=== PATIENT | male | born 1960 | race Two or more races ===

== ENCOUNTER 2018-02-18 18:41 | Inpatient (IN) | payer MEDICARE, OTHER ==
[~2018-02-18] VITALS: Ht 167.6 cm; Wt 82.1 kg
[~2018-02-18 18:41] MED LIST: AML5T PO; CLOP75TA41 PO; HYDR-4296 PO; ISOS30TA4 PO; METO25TA5 PO; NITR0.4S29 SL; SIMV-8 PO
[2018-02-18] MEDS ORDERED: ACETAMINOPHEN 325 MG TAB PO PRN (22:30)
[2018-02-18] MEDS ORDERED: TEMAZEPAM 15 MG CAP PO PRN (22:30)
[2018-02-18] MEDS ORDERED: LORazepam 2MG/ML-1ML VIAL IV PRN (22:30)
[2018-02-18] MEDS ORDERED: ONDANSETRON HCL 4 MG/2 ML VIAL IV PRN (22:30)
[2018-02-18 22:39] LABS: Basophils # (auto) 0.1 uL; Basophils % (auto) 0.7 % (0.0-2.0); Eosinophils # (auto) 0.4 uL; Eosinophils % (auto) 5.1 % (0.0-7.0); Hematocrit 38.9 % (41.0-53.0); Hemoglobin 13.1 g/dL (13.5-17.5); Lymphocytes # (auto) 1.2 uL; Lymphocytes % (auto) 16.2 % (10.0-50.0); Mean Corpuscular Hemoglobin 31.1 pg (28.0-32.0); Mean Corpuscular Hgb Conc. 33.5 g/dL (32.0-36.0); Mean Corpuscular Volume 92.6 fL (80.0-100.0); Monocytes # (auto) 0.5 uL; Monocytes % (auto) 6.3 % (0.0-12.0); Neutrophils # (auto) 5.5 uL; Neutrophils % (auto) 71.7 % (37.0-80.0); Nucleated Red Blood Cells % 0.2 %; Platelet Count (auto) 153 10^3/uL (140-450); Red Cell Distribution Width 14.4 % (11.8-14.3); White Blood Cell 7.6 10^3/uL (4.4-10.8)
[2018-02-18 22:55] LABS: INR 0.94 (0.9-1.15); Partial Thromboplastin Time 26.7 sec (23.78-33.04); Prothrombin Time 10.1 sec (9.27-12.13)
[2018-02-18 22:59] LABS: Albumin 3.1 g/dL (3.4-5.0); Anion Gap 10 (5-15); Blood Urea Nitrogen 20 mg/dL (7-18); Calcium 7.2 mg/dL (8.5-10.1); Carbon Dioxide 28 mmol/L (21-32); Chloride 99 mmol/L (98-107); Magnesium 1.8 mg/dL (1.6-2.6); Potassium 4.1 mmol/L (3.5-5.1); Sodium 137 mmol/L (136-145)
[2018-02-18 23:01] LABS: Alanine Aminotransferase 26 U/L (16-61); Aspartate Aminotransferase 29 U/L (15-37); GFR African American 15 mL/min; GFR Non-African American 13 mL/min; Glucose 80 mg/dL (74-106)
[2018-02-18 23:04] LABS: Alkaline Phosphatase 106 U/L (45-117); Bilirubin, Total 0.5 mg/dL (0.2-1.0); Total Protein 8.6 g/dL (6.4-8.2)
[2018-02-18 23:46] VITALS: BP 132/87
[2018-02-19 05:42] VITALS: BP 121/73
[2018-02-19] MEDS ORDERED: DIPH25CA66 PO (06:37)
[2018-02-19] MEDS ORDERED: SEVE800T8 PO (06:37)
[2018-02-19] MEDS ORDERED: HYDR-4296 PO (06:37)
[2018-02-19] MEDS ORDERED: ISOS10TA45 PO (06:37)
[2018-02-19] MEDS ORDERED: MET25T PO (06:37)
[2018-02-19] MEDS ORDERED: ALLO100T PO (06:37)
[2018-02-19 07:03] LABS: Basophils # (auto) 0.1 uL; Basophils % (auto) 0.9 % (0.0-2.0); Eosinophils # (auto) 0.5 uL; Eosinophils % (auto) 7.6 % (0.0-7.0); Hematocrit 36.5 % (41.0-53.0); Lymphocytes # (auto) 1.6 uL; Lymphocytes % (auto) 26.5 % (10.0-50.0); Mean Corpuscular Hemoglobin 30.6 pg (28.0-32.0); Mean Corpuscular Hgb Conc. 32.9 g/dL (32.0-36.0); Monocytes # (auto) 0.5 uL; Monocytes % (auto) 8.4 % (0.0-12.0); Neutrophils # (auto) 3.4 uL; Neutrophils % (auto) 56.6 % (37.0-80.0); Platelet Count (auto) 161 10^3/uL (140-450); Red Blood Cells 3.93 10^6/uL (4.5-5.90); Red Cell Distribution Width 14.1 % (11.8-14.3)
[2018-02-19 07:04] LABS: Calcium 6.5 mg/dL (8.5-10.1); Chloride 100 mmol/L (98-107); Potassium 3.7 mmol/L (3.5-5.1); Sodium 137 mmol/L (136-145)
[2018-02-19 07:08] LABS: Alanine Aminotransferase 23 U/L (16-61); Albumin 2.8 g/dL (3.4-5.0); Anion Gap 12 (5-15); Aspartate Aminotransferase 19 U/L (15-37); BUN/Creatinine Ratio 3.9; Blood Urea Nitrogen 23 mg/dL (7-18); Carbon Dioxide 25 mmol/L (21-32); GFR African American 13 mL/min; GFR Non-African American 11 mL/min; Glucose 88 mg/dL (74-106)
[2018-02-19 07:10] LABS: Alkaline Phosphatase 90 U/L (45-117); Bilirubin, Total 0.5 mg/dL (0.2-1.0); Total Protein 7.7 g/dL (6.4-8.2)
[2018-02-19 09:00] VITALS: BP 140/77
[2018-02-19] MEDS: amLODIPine BESYLATE 5 MG TAB PO SCH (10:02)
[2018-02-19] MEDS: CLOPIDOGREL BISULFATE 75 MG TAB PO SCH (10:03)
[2018-02-19] MEDS: hydrALAZINE HCL 25 MG TAB PO SCH ×2 (10:03→22:00)
[2018-02-19] MEDS: METOPROLOL TARTRATE 25 MG TAB PO SCH ×2 (10:03→23:37)
[2018-02-19] MEDS: PANTOPRAZOLE 40 MG TAB PO SCH (10:04)
[2018-02-19] MEDS: ISOSORBIDE MONONITRATE 60 MG TAB PO SCH (10:04)
[2018-02-19] MEDS ORDERED: LORazepam 2MG/ML-1ML VIAL IV PRN (12:45)
[2018-02-19] MEDS: LEVETIRACETAM 500 MG TAB PO SCH ×2 (12:55→23:37)
[2018-02-19 13:00] VITALS: BP 117/71
[2018-02-19 17:00] VITALS: BP 93/51
[2018-02-19 22:00] VITALS: BP 110/61
[2018-02-19] MEDS: ATORVASTATIN 20 MG TAB PO SCH (23:36)
[2018-02-20 06:00] VITALS: BP 98/55
[2018-02-20 08:46] LABS: Basophils # (auto) 0.1 uL; Eosinophils # (auto) 0.5 uL; Eosinophils % (auto) 8.5 % (0.0-7.0); Hematocrit 37.6 % (41.0-53.0); Hemoglobin 12.4 g/dL (13.5-17.5); Lymphocytes # (auto) 1.7 uL; Nucleated Red Blood Cells % 0.1 %
[2018-02-20 08:58] LABS: Basophils % (auto) 0.9 % (0.0-2.0); Lymphocytes % (auto) 29.2 % (10.0-50.0); Mean Corpuscular Hemoglobin 30.4 pg (28.0-32.0); Mean Corpuscular Volume 92.2 fL (80.0-100.0); Monocytes # (auto) 0.6 uL; Monocytes % (auto) 9.4 % (0.0-12.0); Neutrophils # (auto) 3.1 uL; Platelet Count (auto) 163 10^3/uL (140-450); Red Blood Cells 4.08 10^6/uL (4.5-5.90); Red Cell Distribution Width 14.4 % (11.8-14.3)
[2018-02-20 09:00] VITALS: BP 110/70
[2018-02-20 09:14] LABS: BUN/Creatinine Ratio 4.4; Calcium 6.6 mg/dL (8.5-10.1); Phosphorus 6.1 mg/dL (2.5-4.90); Potassium 4.1 mmol/L (3.5-5.1)
[2018-02-20] MEDS: METOPROLOL TARTRATE 25 MG TAB PO SCH ×2 (09:33→22:00)
[2018-02-20] MEDS: LEVETIRACETAM 500 MG TAB PO SCH ×2 (09:33→22:07)
[2018-02-20] MEDS: ISOSORBIDE MONONITRATE 60 MG TAB PO SCH (09:33)
[2018-02-20] MEDS: hydrALAZINE HCL 25 MG TAB PO SCH ×2 (09:33→22:07)
[2018-02-20] MEDS: amLODIPine BESYLATE 5 MG TAB PO SCH (09:34)
[2018-02-20] MEDS: PANTOPRAZOLE 40 MG TAB PO SCH ×2 (09:34→10:29)
[2018-02-20] MEDS: CLOPIDOGREL BISULFATE 75 MG TAB PO SCH (09:34)
[2018-02-20] MEDS: SEVELAMER 800 MG TAB PO SCH ×2 (11:33→17:25)
[2018-02-20 17:00] VITALS: BP 102/57
[2018-02-20 21:44] VITALS: BP 115/68
[2018-02-20] MEDS: ATORVASTATIN 20 MG TAB PO SCH (22:07)
[2018-02-21 05:18] VITALS: BP 111/69
[2018-02-21 05:56] LABS: Basophils # (auto) 0.1 uL; Basophils % (auto) 0.9 % (0.0-2.0); Eosinophils # (auto) 0.4 uL; Eosinophils % (auto) 6.3 % (0.0-7.0); Hematocrit 35.9 % (41.0-53.0); Hemoglobin 11.9 g/dL (13.5-17.5); Lymphocytes # (auto) 1.9 uL; Lymphocytes % (auto) 29.4 % (10.0-50.0); Mean Corpuscular Hemoglobin 30.4 pg (28.0-32.0); Mean Corpuscular Hgb Conc. 33.1 g/dL (32.0-36.0); Mean Corpuscular Volume 91.9 fL (80.0-100.0); Monocytes # (auto) 0.6 uL; Monocytes % (auto) 8.9 % (0.0-12.0); Neutrophils # (auto) 3.4 uL; Neutrophils % (auto) 54.5 % (37.0-80.0); Nucleated Red Blood Cells % 0.1 %; Platelet Count (auto) 175 10^3/uL (140-450); Red Blood Cells 3.91 10^6/uL (4.5-5.90); Red Cell Distribution Width 14.4 % (11.8-14.3); White Blood Cell 6.3 10^3/uL (4.4-10.8)
[2018-02-21 06:15] LABS: BUN/Creatinine Ratio 5.5; Calcium 6.7 mg/dL (8.5-10.1); Potassium 3.8 mmol/L (3.5-5.1)
[2018-02-21] MEDS: SEVELAMER 800 MG TAB PO SCH ×3 (08:10→19:38)
[2018-02-21] MEDS ORDERED: SODIUM CHL 0.9% 1000 ML BAG XX ONE (08:30)
[2018-02-21 09:00] VITALS: BP 103/60
[2018-02-21] MEDS: METOPROLOL TARTRATE 25 MG TAB PO SCH (10:00)
[2018-02-21] MEDS: hydrALAZINE HCL 25 MG TAB PO SCH (10:00)
[2018-02-21] MEDS: ISOSORBIDE MONONITRATE 60 MG TAB PO SCH (10:00)
[2018-02-21] MEDS: amLODIPine BESYLATE 5 MG TAB PO SCH (10:00)
[2018-02-21] MEDS: CLOPIDOGREL BISULFATE 75 MG TAB PO SCH (12:08)
[2018-02-21] MEDS: LEVETIRACETAM 500 MG TAB PO SCH (12:09)
[2018-02-21 13:00] VITALS: BP 126/74
[2018-02-21 14:42] VITALS: BP 118/71
[2018-02-21 16:59] VITALS: BP 122/72
== END 2018-02-21 19:35 | disposition home or self-care (01) | DRG 100 ==
LOC: EDBD 18:41 → ER 18:43 → OVERFLOW 18:44 → WEST WING 23:46
PROVIDERS: ADMIT Nurse Practitioner; ATTEND Internal Medicine
PROC: 5A1D70Z Performance of Urinary Filtration, Intermittent, Less than 6 Hours Per Day (ICD-10-PCS; principal; 2018-02-21)
DX: R56.9 Unspecified convulsions (principal); N18.6 End stage renal disease; G81.91 Hemiplegia, unspecified affecting right dominant side; I13.11 Hypertensive heart and chronic kidney disease without heart failure, with stage 5 chronic kidney disease, or end stage renal disease; R47.01 Aphasia; N25.81 Secondary hyperparathyroidism of renal origin; E44.0 Moderate protein-calorie malnutrition; D64.9 Anemia, unspecified; E78.5 Hyperlipidemia, unspecified; I25.10 Atherosclerotic heart disease of native coronary artery without angina pectoris; E83.39 Other disorders of phosphorus metabolism; R55 Syncope and collapse; F17.200 Nicotine dependence, unspecified, uncomplicated; Z79.899 Other long term (current) drug therapy; Z82.3 Family history of stroke; Z86.73 Personal history of transient ischemic attack (TIA), and cerebral infarction without residual deficits; Z99.2 Dependence on renal dialysis; Z82.49 Family history of ischemic heart disease and other diseases of the circulatory system; Z68.29 Body mass index [BMI] 29.0-29.9, adult
CPT/HCPCS: 36415; 70450; 70551; 71045; 80048; 80053; 83735; 84100; 85025; 85610; 85730; 87081; 90935; 93005; 94761; 95819; 97110; 97116; 97163; J1642

== ENCOUNTER 2019-10-16 15:04 | Inpatient (IN) | payer MEDICARE, OTHER ==
[~2019-10-16] VITALS: Ht 172.7 cm; Wt 74.5 kg
[~2019-10-16 15:04] MED LIST changes: +ALLO100T PO; +DIPH25CA66 PO; +ISOS10TA45 PO; -ISOS30TA4 PO; +MET25T PO; -METO25TA5 PO; +SEVE800T8 PO
[2019-10-16 15:47] LABS: Basophils # (auto) 0.1 10 ^3/uL (0-0.2); Basophils % (auto) 1.3 % (0.0-2.0); Eosinophils # (auto) 0.1 10 ^3/uL (0-0.8); Eosinophils % (auto) 0.9 % (0.0-7.0); Hematocrit 37.3 % (41.0-53.0); Lymphocytes # (auto) 0.9 10 ^3/uL (0.4-5.4); Lymphocytes % (auto) 12.1 % (10.0-50.0); Mean Corpuscular Hemoglobin 29.6 pg (28.0-32.0); Mean Corpuscular Hgb Conc. 32.3 g/dL (32.0-36.0); Mean Corpuscular Volume 91.9 fL (80.0-100.0); Monocytes # (auto) 0.3 10 ^3/uL (0-1.3); Monocytes % (auto) 4.7 % (0.0-12.0); Neutrophils # (auto) 5.9 10 ^3/uL (1.6-8.6); Nucleated Red Blood Cells % 0.2 %; Platelet Count (auto) 312 10^3/uL (140-450); Red Blood Cells 4.06 10^6/uL (4.5-5.90); Red Cell Distribution Width 15.5 % (11.8-14.3); White Blood Cell 7.3 10^3/uL (4.4-10.8)
[2019-10-16 16:08] LABS: Albumin 2.7 g/dL (3.4-5.0); Anion Gap 11 (5-15); Blood Urea Nitrogen 19 mg/dL (7-18); Calcium 8.2 mg/dL (8.5-10.1); Carbon Dioxide 23 mmol/L (21-32); Chloride 101 mmol/L (98-107); Glucose 78 mg/dL (74-106); Potassium 4.1 mmol/L (3.5-5.1); Sodium 135 mmol/L (136-145)
[2019-10-16 16:10] LABS: Alanine Aminotransferase 17 U/L (16-61); Aspartate Aminotransferase 20 U/L (15-37); BUN/Creatinine Ratio 3.8; GFR African American 15 mL/min; GFR Non-African American 13 mL/min
[2019-10-16 16:15] LABS: Alkaline Phosphatase 109 U/L (45-117); Bilirubin, Total 0.3 mg/dL (0.2-1.0); Total Protein 9.7 g/dL (6.4-8.2)
[2019-10-16] MEDS ORDERED: hydrALAZINE HCL 20 MG/ML VL IV PRN (20:30)
[2019-10-16] MEDS ORDERED: NITROGLYCERIN 0.4 MG SL TAB SL PRN (20:30)
[2019-10-16] MEDS ORDERED: MORPHINE SULF INJ 2 MG/ML SYRINGE 1ML IV PRN (20:30)
[2019-10-16] MEDS: diphenhdrAMINE HCL 50 MG/1 ML VL IM SCH (20:36)
[2019-10-16 20:54] LABS: Basophils # (auto) 0.1 10 ^3/uL (0-0.2); Basophils % (auto) 0.8 % (0.0-2.0); Eosinophils # (auto) 0.1 10 ^3/uL (0-0.8); Eosinophils % (auto) 1.1 % (0.0-7.0); Hematocrit 34.9 % (41.0-53.0); Hemoglobin 11.4 g/dL (13.5-17.5); Lymphocytes # (auto) 0.9 10 ^3/uL (0.4-5.4); Lymphocytes % (auto) 13.9 % (10.0-50.0); Mean Corpuscular Hemoglobin 29.8 pg (28.0-32.0); Mean Corpuscular Hgb Conc. 32.7 g/dL (32.0-36.0); Mean Corpuscular Volume 91.2 fL (80.0-100.0); Monocytes # (auto) 0.6 10 ^3/uL (0-1.3); Monocytes % (auto) 8.1 % (0.0-12.0); Neutrophils # (auto) 5.2 10 ^3/uL (1.6-8.6); Neutrophils % (auto) 76.1 % (37.0-80.0); Platelet Count (auto) 324 10^3/uL (140-450); Red Blood Cells 3.83 10^6/uL (4.5-5.90); Red Cell Distribution Width 15.4 % (11.8-14.3); White Blood Cell 6.8 10^3/uL (4.4-10.8)
[2019-10-16 21:09] LABS: Albumin 2.6 g/dL (3.4-5.0); Calcium 7.6 mg/dL (8.5-10.1); Potassium 4.2 mmol/L (3.5-5.1)
[2019-10-16 21:13] LABS: BUN/Creatinine Ratio 3.5; Bilirubin, Total 0.3 mg/dL (0.2-1.0); Total Protein 9.2 g/dL (6.4-8.2)
[2019-10-16 22:34] VITALS: BP 142/99
--- NOTE | 2019-10-16 22:40 | NUR ---
[facility] after SBAR received. Patient oriented to PARI GARDINER, RN primary RN, unit, room, bed, and unit policies regarding patient care and visiting hours. Patient now on continuous telemetry monitoring, tele box # 65 and telemetry reading on arrival to unit is [id number]. Patient placed on bedside oxygen, weighed by bedscale and encouraged to call if they need something. All questions and concerns addressed, patient verbalized understanding. Patient speaks [place]. AOX4 but has language barrier.
[2019-10-16] MEDS: methylPREDNISolone SOD SUCC 125 MG/2 ML VL IV SCH (22:49)
[2019-10-17] MEDS ORDERED: ALBU2TAB4 PO (00:18)
[2019-10-17] MEDS ORDERED: GABA250S2 PO (00:18)
[2019-10-17] MEDS ORDERED: TAMS0.4C36 PO (00:18)
[2019-10-17] MEDS ORDERED: MOXI0.5S LEFTEYE (00:18)
[2019-10-17] MEDS: diphenhdrAMINE HCL 50 MG/1 ML VL IM SCH ×3 (03:00→14:05)
[2019-10-17 05:00] VITALS: BP 129/93
[2019-10-17] MEDS: methylPREDNISolone SOD SUCC 125 MG/2 ML VL IV SCH ×2 (05:18→14:04)
--- NOTE | 2019-10-17 07:13 | NUR ---
Closing Note Endorsed care to day shift nurse.
[2019-10-17 08:00] VITALS: BP 147/97
[2019-10-17 09:00] VITALS: BP 147/97
--- NOTE | 2019-10-17 09:30 | NUR ---
USED PARKING ANALYST SERVICES TO OBTAIN INFORMATION FROM PATIENT. SPOKE WITH HAM, SERVICE #[id number]
--- NOTE | 2019-10-17 10:55 | NUR ---
DR LUGO BEDSIDE WITH PATIENT
--- NOTE | 2019-10-17 11:30 | NUR ---
PATIENTS CAREGIVER, WOLFGANG, CALLED FOR UPDATE ON PATIENT. PROVIDED UPDATE.
[2019-10-17 12:39] VITALS: BP_SYST 139; BP_SYST 150; BP_DIAS 84; BP_DIAS 94
[2019-10-17 17:00] VITALS: BP 147/91
--- NOTE | 2019-10-17 18:00 | NUR ---
DR ROBLES BEDSIDE WITH PATIENT DISCUSSING PLAN OF CARE. ORDERS RECEIVED AND CARRIED OUT.
--- NOTE | 2019-10-17 18:15 | NUR ---
PAGED DR ROBLES, WE DO NOT CARRY THE VIGOMOX EYE DROPS DR ROBLES REQUESTED FOR PATIENT. PER PHARMACY, THEY WOULD RECOMMEND CIPROFLOXACIN 0.3 EYE DROPS THIS MEDICATION IS IN THE SAME CLASS. NEED TO CONFIRM DR ROBLES APPROVES THIS NEED MEDICATION AND SAME ORDER FOR 2 DROPS Q4 HR IN LEFT EYE ONLY
--- NOTE | 2019-10-17 19:30 | NUR ---
DR ROBLES RESPONDED REGARDING EYE MEDICATION. ORDER RECEIVED AND CARRIED OUT.
--- NOTE | 2019-10-17 19:31 | NUR ---
received report from day rn poc reviewed
--- NOTE | 2019-10-17 20:00 | NUR ---
pt observed resting with hob up resp even and unlabored, interpretor phone at bedside, call light within reach, pt is able to verbalize needs with some azeri, bed alarm intact
[2019-10-17] MEDS: CIPROFLOXACIN 0.3%OPTH(EYE) SOL 5ML LEFTEYE SCH (21:30)
[2019-10-17 21:44] VITALS: BP 139/98
[2019-10-18] MEDS: CIPROFLOXACIN 0.3%OPTH(EYE) SOL 5ML LEFTEYE SCH ×4 (02:07→13:55)
--- NOTE | 2019-10-18 04:20 | NUR ---
resting comfortable call light within reach, bed alarm intact, eye gtts given as ordered
[2019-10-18 04:41] VITALS: BP 138/83
--- NOTE | 2019-10-18 05:54 | NUR ---
awoke no c/o discomfort, resp even and unlabored, call light within reach
--- NOTE | 2019-10-18 06:46 | NUR ---
report given to am nurse poc reviewed
[2019-10-18 08:52] VITALS: BP 165/95
--- NOTE | 2019-10-18 10:56 | NUR ---
High BP The patient BP this morning was 165/95 after a recheck. Gave the patient Hydralazine 10mg IV per BP protocol and his BP after reassessment was 148/85. Will continue to monitor.
[2019-10-18 13:00] VITALS: BP 146/95
[2019-10-18] MEDS ORDERED: HEPARIN 1,000 UNITS/ml 1ML VIAL IV ONE (14:15)
[2019-10-18 15:49] VITALS: BP 165/95
--- NOTE | 2019-10-18 16:35 | NUR ---
assessment Patients transportation has been set up with [facility] [phone] confirmation #[id number] per Odalis for 630pm. Rogelio CATES has been notified. Addendum: 10/18/19 at 1637 by Tami ANDREA Amended: Links added.
[2019-10-18 17:00] VITALS: BP 119/78
--- NOTE | 2019-10-18 18:44 | NUR ---
Patient Discharged The patient was discharged today via wheel chair. Discharge paper work was explained to the patient's medical care administrator, Vanessa. Removed the IV and telemetry box, helped dress the patient, reminded about follow up appointments. The patient was discharged at 1730hrs.
== END 2019-10-18 17:30 | disposition home or self-care (01) | DRG 915 ==
LOC: ER 15:04 → EDBD 15:04 → TELE 15:05 → TELE-WESTW 22:48
PROVIDERS: ADMIT Internal Medicine; ATTEND Internal Medicine
PROC: 5A1D70Z Performance of Urinary Filtration, Intermittent, Less than 6 Hours Per Day (ICD-10-PCS; principal; 2019-10-18)
DX: T78.3XXA Angioneurotic edema, initial encounter (principal); N18.6 End stage renal disease; R47.01 Aphasia; I12.0 Hypertensive chronic kidney disease with stage 5 chronic kidney disease or end stage renal disease; J98.11 Atelectasis; Z99.2 Dependence on renal dialysis; E78.5 Hyperlipidemia, unspecified; D64.9 Anemia, unspecified; G40.909 Epilepsy, unspecified, not intractable, without status epilepticus; Z79.02 Long term (current) use of antithrombotics/antiplatelets; Z82.3 Family history of stroke; Z86.73 Personal history of transient ischemic attack (TIA), and cerebral infarction without residual deficits
CPT/HCPCS: 36415; 70450; 71045; 80053; 84484; 85025; 87081; 90935; 93005; G0378

== ENCOUNTER 2021-06-17 12:18 | Inpatient (IN) | payer MEDICARE, OTHER ==
[~2021-06-17] VITALS: Ht 160 cm; Wt 68.0 kg
[~2021-06-17 12:18] MED LIST changes: +ALBU2TAB4 PO; -CLOP75TA41 PO; -DIPH25CA66 PO; +HYDR-3682 PO; -HYDR-4296 PO; -MET25T PO; -NITR0.4S29 SL; +TAMS0.4C36 PO
[2021-06-17 13:03] LABS: Basophils # (auto) 0 10 ^3/uL (0-0.2); Basophils % (auto) 0.5 % (0.0-2.0); Eosinophils # (auto) 0 10 ^3/uL (0-0.8); Hematocrit 30.1 % (41.0-53.0); Hemoglobin 10.1 g/dL (13.5-17.5); Lymphocytes # (auto) 0.5 10 ^3/uL (0.4-5.4); Lymphocytes % (auto) 5.6 % (10.0-50.0); Mean Corpuscular Hemoglobin 30.4 pg (28.0-32.0); Mean Corpuscular Hgb Conc. 33.6 g/dL (32.0-36.0); Mean Corpuscular Volume 90.5 fL (80.0-100.0); Monocytes # (auto) 0.3 10 ^3/uL (0-1.3); Monocytes % (auto) 3.4 % (0.0-12.0); Neutrophils # (auto) 7.5 10 ^3/uL (1.6-8.6); Neutrophils % (auto) 90.5 % (37.0-80.0); Red Blood Cells 3.33 10^6/uL (4.5-5.90); Red Cell Distribution Width 13.6 % (11.8-14.3); White Blood Cell 8.3 10^3/uL (4.4-10.8)
[2021-06-17 13:17] LABS: Albumin 2.9 g/dL (3.4-5.0); Calcium 7.8 mg/dL (8.5-10.1); Potassium 3.8 mmol/L (3.5-5.1)
[2021-06-17 13:20] LABS: BUN/Creatinine Ratio 4.4; Bilirubin, Total 0.4 mg/dL (0.2-1.0); Total Protein 8.2 g/dL (6.4-8.2)
[2021-06-17] MEDS ORDERED: ACETAMINOPHEN 325 MG TAB PO ONE (14:00)
[2021-06-17] MEDS ORDERED: IBUPROFEN 400 MG TAB PO ONE (15:30)
[2021-06-17] MEDS ORDERED: DOCUSATE SOD 100 MG CAP PO PRN (17:30)
[2021-06-17] MEDS ORDERED: NITROGLYCERIN 0.4 MG SL TAB SL PRN (17:30)
[2021-06-17] MEDS ORDERED: MORPHINE SULFATE INJECTION 2 MG/ML SYRG IV PRN ×2 (17:30)
[2021-06-17] MEDS ORDERED: levoFLOXacin 250MG 50 ML IV SCH (18:00)
[2021-06-17] MEDS: ASCORBIC ACID 500 MG TAB PO SCH (22:12)
[2021-06-17] MEDS: ACETAMINOPHEN 325 MG TAB PO PRN (22:13)
[2021-06-18 08:32] LABS: Basophils # (auto) 0.1 10 ^3/uL (0-0.2); Basophils % (auto) 0.5 % (0.0-2.0); Eosinophils # (auto) 0 10 ^3/uL (0-0.8); Hematocrit 29.5 % (41.0-53.0); Hemoglobin 9.7 g/dL (13.5-17.5); Lymphocytes # (auto) 0.7 10 ^3/uL (0.4-5.4); Lymphocytes % (auto) 4.4 % (10.0-50.0); Mean Corpuscular Hemoglobin 29.8 pg (28.0-32.0); Mean Corpuscular Hgb Conc. 32.9 g/dL (32.0-36.0); Mean Corpuscular Volume 90.6 fL (80.0-100.0); Monocytes # (auto) 0.7 10 ^3/uL (0-1.3); Monocytes % (auto) 4.1 % (0.0-12.0); Red Blood Cells 3.25 10^6/uL (4.5-5.90); Red Cell Distribution Width 13.6 % (11.8-14.3); White Blood Cell 16.5 10^3/uL (4.4-10.8)
[2021-06-18 08:51] LABS: Albumin 2.7 g/dL (3.4-5.0); Calcium 7.9 mg/dL (8.5-10.1); Potassium 4.2 mmol/L (3.5-5.1)
[2021-06-18 08:55] LABS: BUN/Creatinine Ratio 4.8; Bilirubin, Total 0.4 mg/dL (0.2-1.0); Total Protein 7.2 g/dL (6.4-8.2)
[2021-06-18 09:00] VITALS: BP 102/59
[2021-06-18] MEDS ORDERED: HYDR25TA87 PO (11:21)
[2021-06-18] MEDS ORDERED: AMLO-489 PO (11:21)
[2021-06-18] MEDS ORDERED: ALBUAER3 IN (11:52)
[2021-06-18] MEDS: MULTIPLE VITAMIN TAB PO SCH (12:04)
[2021-06-18] MEDS: ZINC SULFATE 220mg CAP or TAB PO SCH (12:04)
[2021-06-18] MEDS: ASCORBIC ACID 500 MG TAB PO SCH ×2 (12:04→21:50)
[2021-06-18] MEDS: ENOXAPARIN SOD 30 MG/0.3 ML SYRINGE SC SCH (12:05)
[2021-06-18 13:29] VITALS: BP 118/65
[2021-06-18 16:30] VITALS: BP 93/46
[2021-06-18] MEDS ORDERED: VANCOMYCIN PER PHARMACY 0 MG IV SCH (16:58)
[2021-06-18] MEDS ORDERED: VANCOMYCIN 1GM/250ML 250 ML IV ONE (17:30)
[2021-06-18 22:00] VITALS: BP 90/28
[2021-06-19 05:00] VITALS: BP 98/50
[2021-06-19 05:56] LABS: Basophils # (auto) 0 10 ^3/uL (0-0.2); Basophils % (auto) 0.3 % (0.0-2.0); Eosinophils # (auto) 0 10 ^3/uL (0-0.8); Eosinophils % (auto) 0.2 % (0.0-7.0); Hematocrit 26.1 % (41.0-53.0); Hemoglobin 9.1 g/dL (13.5-17.5); Lymphocytes % (auto) 9.7 % (10.0-50.0); Mean Corpuscular Hemoglobin 31.2 pg (28.0-32.0); Mean Corpuscular Volume 89.1 fL (80.0-100.0); Monocytes # (auto) 0.7 10 ^3/uL (0-1.3); Monocytes % (auto) 7.1 % (0.0-12.0); Neutrophils # (auto) 8.5 10 ^3/uL (1.6-8.6); Neutrophils % (auto) 82.7 % (37.0-80.0); Red Blood Cells 2.93 10^6/uL (4.5-5.90); Red Cell Distribution Width 13.4 % (11.8-14.3); White Blood Cell 10.2 10^3/uL (4.4-10.8)
[2021-06-19 06:30] LABS: BUN/Creatinine Ratio 5.3; Calcium 8.3 mg/dL (8.5-10.1); Potassium 3.6 mmol/L (3.5-5.1)
[2021-06-19] MEDS ORDERED: SODIUM CHL 0.9% 1000 ML BAG XX ONE (07:00)
[2021-06-19] MEDS: ENOXAPARIN SOD 30 MG/0.3 ML SYRINGE SC SCH (09:17)
[2021-06-19] MEDS: ZINC SULFATE 220mg CAP or TAB PO SCH (09:17)
[2021-06-19] MEDS: MULTIPLE VITAMIN TAB PO SCH (09:18)
[2021-06-19] MEDS: ASCORBIC ACID 500 MG TAB PO SCH ×2 (09:18→21:03)
[2021-06-19] MEDS: ALBUMIN 25% 100 ML IV SCH ×2 (15:00→16:00)
[2021-06-19] MEDS ORDERED: ceFAZolin 1GM/50ML 50 ML IV ONE (15:15)
[2021-06-19] MEDS ORDERED: EPOETIN ALFA-EPBX 10,000 UNIT/1ML VIAL SC ONE (21:00)
[2021-06-19] MEDS: ACETAMINOPHEN 325 MG TAB PO PRN (21:39)
[2021-06-19 22:00] VITALS: BP 121/75
[2021-06-20 05:28] VITALS: BP 121/86
[2021-06-20 09:00] VITALS: BP 107/54
[2021-06-20] MEDS: ZINC SULFATE 220mg CAP or TAB PO SCH (10:05)
[2021-06-20] MEDS: ENOXAPARIN SOD 30 MG/0.3 ML SYRINGE SC SCH (10:05)
[2021-06-20] MEDS: ceFAZolin 1GM/50ML 50 ML IV SCH (10:05)
[2021-06-20] MEDS: MULTIPLE VITAMIN TAB PO SCH (10:05)
[2021-06-20] MEDS: ASCORBIC ACID 500 MG TAB PO SCH ×2 (10:05→23:28)
[2021-06-20 13:00] VITALS: BP 110/47
[2021-06-20 17:00] VITALS: BP 103/47
[2021-06-20 22:00] VITALS: BP 120/58
[2021-06-21 06:04] VITALS: BP 115/47
[2021-06-21 08:00] VITALS: BP 128/58
[2021-06-21] MEDS: ceFAZolin 1GM/50ML 50 ML IV SCH (09:52)
[2021-06-21] MEDS: ENOXAPARIN SOD 30 MG/0.3 ML SYRINGE SC SCH (09:53)
[2021-06-21] MEDS: ASCORBIC ACID 500 MG TAB PO SCH ×2 (09:53→21:41)
[2021-06-21] MEDS: ZINC SULFATE 220mg CAP or TAB PO SCH (09:53)
[2021-06-21] MEDS: MULTIPLE VITAMIN TAB PO SCH (09:53)
[2021-06-21 13:00] VITALS: BP 124/70
[2021-06-21] MEDS ORDERED: SODIUM CHL 0.9% 1000 ML BAG XX ONE (16:30)
[2021-06-21 17:24] VITALS: BP 123/75
[2021-06-21 22:00] VITALS: BP 98/53
[2021-06-22 05:00] VITALS: BP 129/69
[2021-06-22 09:00] VITALS: BP 112/56
[2021-06-22 09:52] LABS: INR 1.06 (0.9-1.15)
[2021-06-22] MEDS: ceFAZolin 1GM/50ML 50 ML IV SCH (10:00)
[2021-06-22] MEDS: ZINC SULFATE 220mg CAP or TAB PO SCH (10:00)
[2021-06-22] MEDS: ENOXAPARIN SOD 30 MG/0.3 ML SYRINGE SC SCH (10:00)
[2021-06-22] MEDS: ASCORBIC ACID 500 MG TAB PO SCH ×2 (10:00→22:05)
[2021-06-22] MEDS: MULTIPLE VITAMIN TAB PO SCH (10:00)
[2021-06-22 13:00] VITALS: BP 136/74
[2021-06-22 14:37] LABS: Hepatitis A Ab IgM Negative; Hepatitis C Antibody Negative (Negative)
[2021-06-22 14:38] LABS: Hepatitis B Core IgM Negative
[2021-06-22 15:31] LABS: Basophils # (auto) 0.1 10 ^3/uL (0-0.2); Eosinophils # (auto) 0.1 10 ^3/uL (0-0.8); Eosinophils % (auto) 1.9 % (0.0-7.0); Hematocrit 29.7 % (41.0-53.0); Hemoglobin 9.8 g/dL (13.5-17.5); Lymphocytes # (auto) 1.3 10 ^3/uL (0.4-5.4); Lymphocytes % (auto) 23.4 % (10.0-50.0); Mean Corpuscular Hemoglobin 29.5 pg (28.0-32.0); Mean Corpuscular Hgb Conc. 33.2 g/dL (32.0-36.0); Mean Corpuscular Volume 89.1 fL (80.0-100.0); Monocytes # (auto) 0.5 10 ^3/uL (0-1.3); Monocytes % (auto) 8.9 % (0.0-12.0); Neutrophils # (auto) 3.7 10 ^3/uL (1.6-8.6); Neutrophils % (auto) 64.8 % (37.0-80.0); Red Blood Cells 3.33 10^6/uL (4.5-5.90); Red Cell Distribution Width 13.7 % (11.8-14.3); White Blood Cell 5.6 10^3/uL (4.4-10.8)
[2021-06-22 17:00] VITALS: BP 128/76
[2021-06-22 22:00] VITALS: BP 136/72
[2021-06-22] MEDS: SODIUM BICARBONATE 650 MG TAB PO SCH (22:05)
[2021-06-23 06:24] LABS: BUN/Creatinine Ratio 5.8; Calcium 7.8 mg/dL (8.5-10.1); Potassium 4.4 mmol/L (3.5-5.1)
[2021-06-23] MEDS: SODIUM BICARBONATE 650 MG TAB PO SCH ×3 (07:31→21:23)
[2021-06-23] MEDS: MULTIPLE VITAMIN TAB PO SCH (08:57)
[2021-06-23] MEDS: ASCORBIC ACID 500 MG TAB PO SCH ×2 (08:57→21:24)
[2021-06-23] MEDS: ZINC SULFATE 220mg CAP or TAB PO SCH (08:57)
[2021-06-23] MEDS: ceFAZolin 1GM/50ML 50 ML IV SCH (08:57)
[2021-06-23 09:00] VITALS: BP 111/71
[2021-06-23] MEDS ORDERED: LIDOCAINE 2%HCL (LOCAL ANESTH.) INJ 20ML MDV ONE (09:32)
[2021-06-23] MEDS: ENOXAPARIN SOD 30 MG/0.3 ML SYRINGE SC SCH (10:00)
[2021-06-23 11:55] VITALS: BP 109/76
[2021-06-23 17:00] VITALS: BP 113/67
[2021-06-23 22:00] VITALS: BP 115/68
[2021-06-24] MEDS: SODIUM BICARBONATE 650 MG TAB PO SCH ×3 (06:04→21:59)
[2021-06-24 08:38] VITALS: BP 168/76
[2021-06-24] MEDS: ZINC SULFATE 220mg CAP or TAB PO SCH (09:00)
[2021-06-24] MEDS: ceFAZolin 1GM/50ML 50 ML IV SCH (09:00)
[2021-06-24] MEDS: ASCORBIC ACID 500 MG TAB PO SCH ×2 (09:00→21:59)
[2021-06-24] MEDS: MULTIPLE VITAMIN TAB PO SCH (09:00)
[2021-06-24 12:29] LABS: BUN/Creatinine Ratio 5.8; Calcium 7.7 mg/dL (8.5-10.1); Potassium 4.9 mmol/L (3.5-5.1)
[2021-06-24 12:50] VITALS: BP 132/63
[2021-06-24] MEDS: HEPARIN SODIUM (PORCINE) 5000 UNITS/ML 1ML VIAL SC SCH ×2 (14:25→22:00)
[2021-06-24 16:25] VITALS: BP 187/110
[2021-06-24 18:10] VITALS: BP 142/88
[2021-06-24] MEDS ORDERED: SODIUM ZIRCONIUM CYCL 10 GM PAK PO SCH (18:45)
[2021-06-24] MEDS: SODIUM ZIRCONIUM CYCL 10 GM PAK PO SCH (19:45)
[2021-06-24 19:50] VITALS: BP 129/78
[2021-06-24 22:00] VITALS: BP 129/78
[2021-06-25] MEDS: SODIUM ZIRCONIUM CYCL 10 GM PAK PO SCH ×3 (02:47→18:19)
[2021-06-25 05:00] VITALS: BP 116/53
[2021-06-25] MEDS: SODIUM BICARBONATE 650 MG TAB PO SCH ×3 (06:20→21:42)
[2021-06-25] MEDS: HEPARIN SODIUM (PORCINE) 5000 UNITS/ML 1ML VIAL SC SCH ×3 (06:30→21:41)
[2021-06-25 06:31] LABS: Potassium 4.4 mmol/L (3.5-5.1)
[2021-06-25 06:43] LABS: BUN/Creatinine Ratio 5.8; Calcium 8.1 mg/dL (8.5-10.1)
[2021-06-25 08:21] VITALS: BP 116/57
[2021-06-25] MEDS: ASCORBIC ACID 500 MG TAB PO SCH ×2 (10:25→21:41)
[2021-06-25] MEDS: ZINC SULFATE 220mg CAP or TAB PO SCH (10:25)
[2021-06-25] MEDS: ceFAZolin 1GM/50ML 50 ML IV SCH (10:25)
[2021-06-25] MEDS: MULTIPLE VITAMIN TAB PO SCH (10:26)
[2021-06-25 13:00] VITALS: BP 143/76
[2021-06-25] MEDS ORDERED: HEPARIN SODIUM (PORCINE) 5000 UNITS/ML 1ML VIAL IV ONE (14:00)
[2021-06-25 16:57] VITALS: BP 129/69
[2021-06-25 21:54] VITALS: BP 126/72
[2021-06-26] MEDS: SODIUM ZIRCONIUM CYCL 10 GM PAK PO SCH ×3 (02:37→18:39)
[2021-06-26] MEDS: SODIUM BICARBONATE 650 MG TAB PO SCH ×3 (06:00→22:27)
[2021-06-26] MEDS: HEPARIN SODIUM (PORCINE) 5000 UNITS/ML 1ML VIAL SC SCH ×3 (06:00→22:00)
[2021-06-26 06:01] VITALS: BP 104/57
[2021-06-26] MEDS ORDERED: SODIUM CHL 0.9% 1000 ML BAG XX ONE (07:00)
[2021-06-26 07:11] LABS: Calcium 7.7 mg/dL (8.5-10.1); Potassium 4.7 mmol/L (3.5-5.1)
[2021-06-26 07:14] LABS: BUN/Creatinine Ratio 5.8
[2021-06-26 08:15] VITALS: BP 127/74
[2021-06-26 09:00] VITALS: BP 127/74
[2021-06-26] MEDS: MULTIPLE VITAMIN TAB PO SCH (10:13)
[2021-06-26] MEDS: ceFAZolin 1GM/50ML 50 ML IV SCH (10:13)
[2021-06-26] MEDS: ZINC SULFATE 220mg CAP or TAB PO SCH (10:13)
[2021-06-26] MEDS: LIDOCAINE 1% HCL (LOCAL ANESTH.) INJ 20ML MDV ID ONE ×2 (10:14→10:53)
[2021-06-26] MEDS: ASCORBIC ACID 500 MG TAB PO SCH ×2 (10:14→22:27)
[2021-06-26 12:52] VITALS: BP 124/76
[2021-06-26 16:52] VITALS: BP 136/78
[2021-06-26 22:00] VITALS: BP 121/78
[2021-06-26] MEDS: HYDROcodone-ACET 5/325MG TAB PO PRN ×2 (22:27→22:28)
[2021-06-27] MEDS: SODIUM ZIRCONIUM CYCL 10 GM PAK PO SCH ×3 (03:06→18:31)
[2021-06-27] MEDS: SODIUM BICARBONATE 650 MG TAB PO SCH ×3 (06:00→22:11)
[2021-06-27] MEDS: HEPARIN SODIUM (PORCINE) 5000 UNITS/ML 1ML VIAL SC SCH ×3 (06:00→22:12)
[2021-06-27] MEDS: HYDROcodone-ACET 5/325MG TAB PO PRN (06:00)
[2021-06-27 06:12] LABS: Calcium 7.2 mg/dL (8.5-10.1)
[2021-06-27 08:15] VITALS: BP 126/86
[2021-06-27 09:00] VITALS: BP 126/86
[2021-06-27] MEDS: ZINC SULFATE 220mg CAP or TAB PO SCH (10:08)
[2021-06-27] MEDS: MULTIPLE VITAMIN TAB PO SCH (10:08)
[2021-06-27] MEDS: ceFAZolin 1GM/50ML 50 ML IV SCH (10:08)
[2021-06-27] MEDS: ASCORBIC ACID 500 MG TAB PO SCH ×2 (10:08→22:11)
[2021-06-27] MEDS: ONDANSETRON HCL 4 MG/2 ML VIAL IV PRN (12:02)
[2021-06-27 13:00] VITALS: BP 118/80
[2021-06-27 17:00] VITALS: BP 127/77
[2021-06-27 20:00] VITALS: BP 125/74
[2021-06-27 22:00] VITALS: BP_SYST 124; BP_SYST 125; BP_DIAS 74; BP_DIAS 89
[2021-06-28] VITALS (8 sets, daily range): BP systolic 90–133; BP diastolic 62–83
[2021-06-28] MEDS: SODIUM ZIRCONIUM CYCL 10 GM PAK PO SCH ×3 (04:47→19:15)
[2021-06-28] MEDS: SODIUM BICARBONATE 650 MG TAB PO SCH ×3 (06:52→21:58)
[2021-06-28] MEDS: HEPARIN SODIUM (PORCINE) 5000 UNITS/ML 1ML VIAL SC SCH ×3 (06:53→22:03)
[2021-06-28] MEDS: ceFAZolin 1GM/50ML 50 ML IV SCH (10:54)
[2021-06-28] MEDS: ZINC SULFATE 220mg CAP or TAB PO SCH (10:55)
[2021-06-28] MEDS: ASCORBIC ACID 500 MG TAB PO SCH ×2 (10:56→21:57)
[2021-06-28] MEDS: MULTIPLE VITAMIN TAB PO SCH (10:56)
[2021-06-28] MEDS: ONDANSETRON HCL 4 MG/2 ML VIAL IV PRN (12:23)
[2021-06-29] MEDS: SODIUM ZIRCONIUM CYCL 10 GM PAK PO SCH ×3 (03:39→20:54)
[2021-06-29 05:00] VITALS: BP 116/65
[2021-06-29] MEDS: HEPARIN SODIUM (PORCINE) 5000 UNITS/ML 1ML VIAL SC SCH ×3 (05:22→22:12)
[2021-06-29] MEDS: SODIUM BICARBONATE 650 MG TAB PO SCH ×3 (06:12→22:11)
[2021-06-29 06:16] LABS: BUN/Creatinine Ratio 5.2; Potassium 4.4 mmol/L (3.5-5.1)
[2021-06-29] MEDS ORDERED: SODIUM CHL 0.9% 1000 ML BAG XX ONE (07:00)
[2021-06-29 08:08] LABS: Basophils # (auto) 0.1 10 ^3/uL (0-0.2); Basophils % (auto) 0.9 % (0.0-2.0); Eosinophils # (auto) 0.1 10 ^3/uL (0-0.8); Eosinophils % (auto) 2.3 % (0.0-7.0); Hematocrit 25.8 % (41.0-53.0); Hemoglobin 8.5 g/dL (13.5-17.5); Lymphocytes # (auto) 1.4 10 ^3/uL (0.4-5.4); Mean Corpuscular Hemoglobin 29.1 pg (28.0-32.0); Mean Corpuscular Volume 88.3 fL (80.0-100.0); Monocytes # (auto) 0.6 10 ^3/uL (0-1.3); Monocytes % (auto) 10.5 % (0.0-12.0); Neutrophils # (auto) 3.5 10 ^3/uL (1.6-8.6); Neutrophils % (auto) 61.3 % (37.0-80.0); Nucleated Red Blood Cells % 0.1 %; Red Blood Cells 2.93 10^6/uL (4.5-5.90); Red Cell Distribution Width 13.8 % (11.8-14.3); White Blood Cell 5.8 10^3/uL (4.4-10.8)
[2021-06-29 08:51] LABS: INR 1.88 (0.9-1.15); Partial Thromboplastin Time 52.1 sec (23.6-33.0)
[2021-06-29 09:00] VITALS: BP 128/79
[2021-06-29] MEDS: ceFAZolin 1GM/50ML 50 ML IV SCH (09:49)
[2021-06-29] MEDS: ZINC SULFATE 220mg CAP or TAB PO SCH (10:00)
[2021-06-29] MEDS: ASCORBIC ACID 500 MG TAB PO SCH ×2 (10:00→22:11)
[2021-06-29] MEDS: MULTIPLE VITAMIN TAB PO SCH (10:00)
[2021-06-29 13:00] VITALS: BP 130/79
[2021-06-29] MEDS ORDERED: HEPARIN SODIUM (PORCINE) 5000 UNITS/ML 1ML VIAL ONE (15:04)
[2021-06-29 17:00] VITALS: BP 123/79
[2021-06-29] MEDS ORDERED: EPOETIN ALFA-EPBX 10,000 UNIT/1ML VIAL SC ONE (21:00)
[2021-06-29 21:36] VITALS: BP 113/70
[2021-06-29] MEDS: ACETAMINOPHEN 325 MG TAB PO PRN (22:20)
[2021-06-30] VITALS (10 sets, daily range): BP systolic 109–149; BP diastolic 56–85
[2021-06-30] MEDS: SODIUM ZIRCONIUM CYCL 10 GM PAK PO SCH ×3 (03:00→19:00)
[2021-06-30] MEDS: SODIUM BICARBONATE 650 MG TAB PO SCH ×2 (05:02→22:00)
[2021-06-30] MEDS: HEPARIN SODIUM (PORCINE) 5000 UNITS/ML 1ML VIAL SC SCH ×2 (06:00→22:00)
[2021-06-30] MEDS ORDERED: SODIUM CHL 0.9% 1000 ML BAG XX ONE (07:00)
[2021-06-30] MEDS ORDERED: IODIXANOL 320MG/ML 100ML BTL IV ONE (08:34)
[2021-06-30] MEDS ORDERED: LIDOCAINE 2%HCL (LOCAL ANESTH.) INJ 20ML MDV ONE ×2 (08:34→09:26)
[2021-06-30] MEDS ORDERED: fentaNYL CITRATE 100 MCG/2 ML VL ONE (09:07)
[2021-06-30] MEDS ORDERED: MIDAZOLAM HCL 2MG/2ML 2ml VIAL (1mg/ml) ONE (09:08)
[2021-06-30] MEDS ORDERED: HEPARIN SODIUM (PORCINE) 5000 UNITS/ML 1ML VIAL ONE (09:57)
[2021-06-30] MEDS: ceFAZolin 1GM/50ML 50 ML IV SCH (10:00)
[2021-06-30] MEDS: MULTIPLE VITAMIN TAB PO SCH (10:00)
[2021-06-30] MEDS: ASCORBIC ACID 500 MG TAB PO SCH ×2 (10:00→22:00)
[2021-06-30] MEDS: ZINC SULFATE 220mg CAP or TAB PO SCH (10:00)
[2021-06-30] MEDS: ACETAMINOPHEN 325 MG TAB PO PRN (12:07)
[2021-06-30] MEDS ORDERED: EPOETIN ALFA-EPBX 10,000 UNIT/1ML VIAL SC ONE (21:00)
[2021-07-01] MEDS: SODIUM ZIRCONIUM CYCL 10 GM PAK PO SCH ×2 (03:00→09:44)
[2021-07-01 05:00] VITALS: BP 124/83
[2021-07-01] MEDS: SODIUM BICARBONATE 650 MG TAB PO SCH ×2 (06:00→14:00)
[2021-07-01] MEDS: HEPARIN SODIUM (PORCINE) 5000 UNITS/ML 1ML VIAL SC SCH ×3 (06:00→14:00)
[2021-07-01 08:00] VITALS: BP 142/85
[2021-07-01] MEDS: MULTIPLE VITAMIN TAB PO SCH (09:44)
[2021-07-01] MEDS: ZINC SULFATE 220mg CAP or TAB PO SCH (09:44)
[2021-07-01] MEDS: ASCORBIC ACID 500 MG TAB PO SCH (09:44)
[2021-07-01 11:50] VITALS: BP 132/81
== END 2021-07-01 14:20 | disposition home or self-care (01) | DRG 314 ==
LOC: EDUNIT# 12:18 → EDBD 12:18 → ER 12:18 → UNDOADMIN 17:16 → TELE 17:16 → TELE-WESTW 06-18 06:08
PROVIDERS: ADMIT Internal Medicine; ATTEND Internal Medicine
PROC: 5A1D70Z Performance of Urinary Filtration, Intermittent, Less than 6 Hours Per Day (ICD-10-PCS; 2021-06-19)
PROC: 5A1D70Z Performance of Urinary Filtration, Intermittent, Less than 6 Hours Per Day (ICD-10-PCS; 2021-06-21)
PROC: 06HY33Z Insertion of Infusion Device into Lower Vein, Percutaneous Approach (ICD-10-PCS; principal; 2021-06-26)
PROC: 5A1D70Z Performance of Urinary Filtration, Intermittent, Less than 6 Hours Per Day (ICD-10-PCS; 2021-06-28)
PROC: 0JH63XZ Insertion of Tunneled Vascular Access Device into Chest Subcutaneous Tissue and Fascia, Percutaneous Approach (ICD-10-PCS; 2021-06-30)
PROC: 02H633Z Insertion of Infusion Device into Right Atrium, Percutaneous Approach (ICD-10-PCS; 2021-06-30)
PROC: B5181ZA Fluoroscopy of Superior Vena Cava using Low Osmolar Contrast, Guidance (ICD-10-PCS; 2021-06-30)
PROC: B544ZZA Ultrasonography of Left Jugular Veins, Guidance (ICD-10-PCS; 2021-06-30)
PROC: 5A1D70Z Performance of Urinary Filtration, Intermittent, Less than 6 Hours Per Day (ICD-10-PCS; 2021-06-30)
DX: T82.7XXA Infection and inflammatory reaction due to other cardiac and vascular devices, implants and grafts, initial encounter (principal); A41.2 Sepsis due to unspecified staphylococcus; N18.6 End stage renal disease; E87.1 Hypo-osmolality and hyponatremia; I13.2 Hypertensive heart and chronic kidney disease with heart failure and with stage 5 chronic kidney disease, or end stage renal disease; I69.351 Hemiplegia and hemiparesis following cerebral infarction affecting right dominant side; D63.1 Anemia in chronic kidney disease; I25.10 Atherosclerotic heart disease of native coronary artery without angina pectoris; I50.9 Heart failure, unspecified; Z20.822 Contact with and (suspected) exposure to COVID-19; R56.9 Unspecified convulsions; Y83.8 Other surgical procedures as the cause of abnormal reaction of the patient, or of later complication, without mention of misadventure at the time of the procedure; X58.XXXA Exposure to other specified factors, initial encounter; Y92.89 Other specified places as the place of occurrence of the external cause; Z99.2 Dependence on renal dialysis; Z79.899 Other long term (current) drug therapy; Z82.3 Family history of stroke; Y93.89 Activity, other specified; Y99.8 Other external cause status
CPT/HCPCS: 36415; 36558; 70450; 71045; 73501; 76942; 77001; 78582; 80048; 80053; 80074; 80202; 83605; 83735; 84443; 85025; 85379; 85610; 85730; 87040; 87070; 87077; 87081; 87147; 87186; 87426; 90935; 93005; 93306; 93970; 96365; 99152; 99153; G0378; J0690; J1642; J2001; J2250; J2405; P9047; Q9967

== ENCOUNTER 2023-04-07 13:14 | Inpatient (IN) | payer MEDICARE, OTHER ==
[~2023-04-07] VITALS: Ht 162.6 cm; Wt 64.9 kg
[~2023-04-07 13:14] MED LIST changes: -ALBU2TAB4 PO; +ALBUAER3 IN; -AML5T PO; +AMLO1TAB22 PO; -HYDR-3682 PO; +HYDR25TA87 PO; -ISOS10TA45 PO; -SIMV-8 PO; +SIMV20TA20 PO
[2023-04-07] MEDS ORDERED: ALBUTEROL SULF 2.5 MG/0.5ML(0.5%) NEB SOLN NEB ONE (14:00)
[2023-04-07] MEDS ORDERED: IPRATROPIUM BROM 0.5 MG/2.5ML INH SOL NEB ONE (14:00)
[2023-04-07] MEDS ORDERED: PIPERACILLIN-TAZOB 3.375GM 100 ML IV ONE (14:30)
[2023-04-07 14:39] VITALS: PULSE 122; RESP 33; O2SAT 94
[2023-04-07 14:56] LABS: Basophils # (auto) 0.1 10 ^3/uL (0-0.2); Basophils % (auto) 0.9 % (0.0-2.0); Eosinophils # (auto) 0.1 10 ^3/uL (0-0.8); Eosinophils % (auto) 1.6 % (0.0-7.0); Hematocrit 43.6 % (41.0-53.0); Hemoglobin 14.4 g/dL (13.5-17.5); Lymphocytes # (auto) 2.6 10 ^3/uL (0.4-5.4); Lymphocytes % (auto) 32.8 % (10.0-50.0); Mean Corpuscular Hemoglobin 31.6 pg (28.0-32.0); Mean Corpuscular Volume 95.8 fL (80.0-100.0); Monocytes # (auto) 0.3 10 ^3/uL (0-1.3); Monocytes % (auto) 3.2 % (0.0-12.0); Neutrophils # (auto) 4.9 10 ^3/uL (1.6-8.6); Neutrophils % (auto) 61.5 % (37.0-80.0); Nucleated Red Blood Cells % 0.1 %; Red Blood Cells 4.56 10^6/uL (4.5-5.90); Red Cell Distribution Width 16.1 % (11.8-14.3); White Blood Cell 7.9 10^3/uL (4.4-10.8)
[2023-04-07 14:58] LABS: Alkaline Phosphatase 540 U/L (46-116); Aspartate Aminotransferase 11 U/L (13-40); Carbon Dioxide 25 mmol/L (20-30); Chloride 103 mmol/L (98-107); Glucose 129 mg/dL (74-106); Potassium 4.2 mmol/L (3.5-5.1)
[2023-04-07 14:59] LABS: Albumin 3.9 g/dL (3.2-4.8); Anion Gap 11 (5-15); BUN/Creatinine Ratio 3.2 (10.0-20.0); Bilirubin, Total 0.8 mg/dL (0.2-1.0); Blood Urea Nitrogen 17 mg/dL (9-23); Sodium 139 mmol/L (136-145); Total Protein 7.8 g/dL (5.7-8.2)
[2023-04-07 15:00] LABS: Lactic Acid w/Reflex 2.8 mmol/L (0.4-2.0)
[2023-04-07] MEDS ORDERED: NITROGLYCERIN 0.4 MG SL TAB SL ONE (15:00)
[2023-04-07 15:02] LABS: Alanine Aminotransferase < 9 U/L (7-40)
[2023-04-07 15:45] VITALS: BP_SYST 113; BP_SYST 125; BP_DIAS 66; BP_DIAS 84; PULSE 104; PULSE 86; RESP 18; TEMP 97.3; O2SAT 97; O2SAT 99
[2023-04-07 16:49] LABS: Base Excess 2.4 mmol/L (-2.0-2.0)
[2023-04-07] MEDS ORDERED: HYDROcodone-ACET 5/325MG TAB PO PRN (17:15)
[2023-04-07] MEDS ORDERED: ACETAMINOPHEN 325 MG TAB PO PRN (17:15)
[2023-04-07] MEDS ORDERED: MORPHINE SULFATE INJ 2 MG/ml SYRG IV PRN (17:15)
[2023-04-07 18:34] VITALS: BP 146/49; PULSE 76; RESP 25; O2SAT 100
[2023-04-07] MEDS: IPRATROPIUM BROM 0.5 MG/2.5ML INH SOL NEB SCH (18:34)
[2023-04-07] MEDS: ALBUTEROL SULF 2.5 MG/0.5ML(0.5%) NEB SOLN NEB SCH (18:34)
[2023-04-07 18:40] VITALS: PULSE 77; RESP 20; O2SAT 100
[2023-04-07 19:47] LABS: Basophils # (auto) 0.1 10 ^3/uL (0-0.2); Basophils % (auto) 1.1 % (0.0-2.0); Eosinophils # (auto) 0 10 ^3/uL (0-0.8); Eosinophils % (auto) 0.3 % (0.0-7.0); Hematocrit 37.2 % (41.0-53.0); Lymphocytes # (auto) 1.3 10 ^3/uL (0.4-5.4); Lymphocytes % (auto) 19.5 % (10.0-50.0); Mean Corpuscular Hemoglobin 30.9 pg (28.0-32.0); Mean Corpuscular Hgb Conc. 32.3 g/dL (32.0-36.0); Mean Corpuscular Volume 95.4 fL (80.0-100.0); Monocytes # (auto) 0.3 10 ^3/uL (0-1.3); Monocytes % (auto) 4.9 % (0.0-12.0); Neutrophils # (auto) 4.8 10 ^3/uL (1.6-8.6); Neutrophils % (auto) 74.2 % (37.0-80.0); Red Cell Distribution Width 16.1 % (11.8-14.3); White Blood Cell 6.4 10^3/uL (4.4-10.8)
[2023-04-07 20:02] LABS: INR 1.1 (0.9-1.15); Partial Thromboplastin Time 32.4 SEC (24.5-34.5); Prothrombin Time 11.5 sec (9.3-11.8)
[2023-04-07] MEDS ORDERED: HEPARIN SODIUM (PORCINE) 5000 UNITS/ML 1ML VIAL IV ONE (20:15)
[2023-04-07] MEDS ORDERED: HEPARIN DRIP/D5W 100UNITS/ML 250 ML IV SCH (20:15)
[2023-04-07 20:30] VITALS: PULSE 78; RESP 19; O2SAT 99
[2023-04-07] MEDS ORDERED: HEPARIN SODIUM (PORCINE) 5000 UNITS/ML 1ML VIAL SC SCH (22:00)
[2023-04-08] VITALS (11 sets, daily range): BP systolic 147–157; BP diastolic 43–91; PULSE 71–93; RESP 15–18; TEMP 97.4–98.5; O2SAT 90–100
[2023-04-08 00:02] LABS: INR 1.06 (0.9-1.15); Partial Thromboplastin Time 33.9 SEC (24.5-34.5); Prothrombin Time 11.1 sec (9.3-11.8)
[2023-04-08] MEDS: ALBUTEROL SULF 2.5 MG/0.5ML(0.5%) NEB SOLN NEB SCH ×3 (06:12→18:19)
[2023-04-08] MEDS: IPRATROPIUM BROM 0.5 MG/2.5ML INH SOL NEB SCH ×3 (06:13→18:19)
[2023-04-08 06:55] LABS: Albumin 3.3 g/dL (3.2-4.8); Alkaline Phosphatase 420 U/L (46-116); Anion Gap 11 (5-15); Aspartate Aminotransferase 9 U/L (13-40); BUN/Creatinine Ratio 2.5 (10.0-20.0); Blood Urea Nitrogen 18 mg/dL (9-23); Calcium 7.7 mg/dL (8.5-10.1); Carbon Dioxide 27 mmol/L (20-30); Chloride 103 mmol/L (98-107); Glucose 62 mg/dL (74-106); LDL Cholesterol 94 mg/dL (< 100); Potassium 4.2 mmol/L (3.5-5.1); Sodium 141 mmol/L (136-145); Triglycerides 69 mg/dL (< 150)
[2023-04-08 06:56] LABS: Bilirubin, Total 0.6 mg/dL (0.2-1.0); Cholesterol 155 mg/dL (< 200); HDL Cholesterol 52 mg/dL (40-59); Total Protein 6.6 g/dL (5.7-8.2)
[2023-04-08 06:58] LABS: Alanine Aminotransferase < 9 U/L (7-40)
[2023-04-08 07:00] LABS: Basophils # (auto) 0.1 10 ^3/uL (0-0.2); Basophils % (auto) 1.3 % (0.0-2.0); Eosinophils # (auto) 0.1 10 ^3/uL (0-0.8); Eosinophils % (auto) 1.6 % (0.0-7.0); Hematocrit 34.8 % (41.0-53.0); Hemoglobin 11.4 g/dL (13.5-17.5); Lymphocytes # (auto) 1.2 10 ^3/uL (0.4-5.4); Lymphocytes % (auto) 23.8 % (10.0-50.0); Mean Corpuscular Hemoglobin 31.2 pg (28.0-32.0); Mean Corpuscular Hgb Conc. 32.7 g/dL (32.0-36.0); Mean Corpuscular Volume 95.6 fL (80.0-100.0); Monocytes # (auto) 0.3 10 ^3/uL (0-1.3); Monocytes % (auto) 6.2 % (0.0-12.0); Neutrophils # (auto) 3.3 10 ^3/uL (1.6-8.6); Neutrophils % (auto) 67.1 % (37.0-80.0); Nucleated Red Blood Cells % 0.2 %; Red Blood Cells 3.64 10^6/uL (4.5-5.90); Red Cell Distribution Width 15.9 % (11.8-14.3)
[2023-04-08] MEDS ORDERED: HEPARIN DRIP/D5W 100UNITS/ML 250 ML IV SCH ×2 (07:15→17:45)
[2023-04-08] MEDS: ASPirin 81 mg TAB PO SCH (09:42)
[2023-04-08 15:05] LABS: INR 1.13 (0.9-1.15); Prothrombin Time 11.8 sec (9.3-11.8)
[2023-04-08 15:09] LABS: Partial Thromboplastin Time > 139.0 SEC (24.5-34.5)
[2023-04-08 17:04] LABS: INR 1.06 (0.9-1.15); Prothrombin Time 11.1 sec (9.3-11.8)
[2023-04-09] VITALS (13 sets, daily range): BP systolic 127–166; BP diastolic 70–138; PULSE 80–94; RESP 16–22; TEMP 97.6–98.5; O2SAT 96–100
[2023-04-09 01:12] LABS: INR 1.1 (0.9-1.15); Partial Thromboplastin Time 54.9 SEC (24.5-34.5); Prothrombin Time 11.5 sec (9.3-11.8)
[2023-04-09] MEDS: NITROGLYCERIN 0.4 MG SL TAB SL PRN ×4 (01:55→02:57)
[2023-04-09] MEDS: IPRATROPIUM BROM 0.5 MG/2.5ML INH SOL NEB SCH ×3 (06:41→18:57)
[2023-04-09] MEDS: ALBUTEROL SULF 2.5 MG/0.5ML(0.5%) NEB SOLN NEB SCH ×3 (06:41→18:57)
[2023-04-09 08:07] LABS: INR 1.12 (0.9-1.15); Prothrombin Time 11.7 sec (9.3-11.8)
[2023-04-09] MEDS ORDERED: SODIUM CHL 0.9% 1000 ML BAG XX ONE (08:15)
[2023-04-09 08:20] LABS: Partial Thromboplastin Time 82.1 SEC (24.5-34.5)
[2023-04-09 08:32] LABS: Hematocrit 38.4 % (41.0-53.0); Hemoglobin 12.5 g/dL (13.5-17.5)
[2023-04-09] MEDS: ASPirin 81 mg TAB PO SCH (10:13)
[2023-04-09] MEDS: ISOSORBIDE DINITRATE 10 MG TAB PO SCH (10:16)
[2023-04-09 15:36] LABS: INR 1.15 (0.9-1.15); Partial Thromboplastin Time 58.9 SEC (24.5-34.5)
[2023-04-09] MEDS: HEPARIN DRIP/D5W 100UNITS/ML 250 ML IV SCH (16:45)
[2023-04-09] MEDS ORDERED: EPOETIN ALFA-EPBX 4,000 UNIT/ML VIAL SC ONE (21:00)
[2023-04-09 21:49] LABS: INR 1.11 (0.9-1.15); Partial Thromboplastin Time 60.1 SEC (24.5-34.5); Prothrombin Time 11.6 sec (9.3-11.8)
[2023-04-10] VITALS (16 sets, daily range): BP systolic 131–174; BP diastolic 50–77; PULSE 68–98; RESP 17–22; TEMP 97.9–99; O2SAT 93–100
[2023-04-10 03:44] LABS: INR 1.1 (0.9-1.15); Partial Thromboplastin Time 54.1 SEC (24.5-34.5); Prothrombin Time 11.5 sec (9.3-11.8)
[2023-04-10] MEDS: IPRATROPIUM BROM 0.5 MG/2.5ML INH SOL NEB SCH ×3 (07:22→18:53)
[2023-04-10] MEDS: ALBUTEROL SULF 2.5 MG/0.5ML(0.5%) NEB SOLN NEB SCH ×3 (07:22→18:53)
[2023-04-10] MEDS: HEPARIN DRIP/D5W 100UNITS/ML 250 ML IV SCH (08:45)
[2023-04-10] MEDS: ASPirin 81 mg TAB PO SCH (09:39)
[2023-04-10] MEDS: ISOSORBIDE DINITRATE 10 MG TAB PO SCH (09:39)
[2023-04-11] VITALS (15 sets, daily range): BP systolic 107–181; BP diastolic 63–105; PULSE 75–100; RESP 14–18; TEMP 96.9–99; O2SAT 95–100
[2023-04-11] MEDS ORDERED: SODIUM CHL 0.9% 1000 ML BAG XX ONE (06:30)
[2023-04-11] MEDS: ALBUTEROL SULF 2.5 MG/0.5ML(0.5%) NEB SOLN NEB SCH ×3 (06:40→18:39)
[2023-04-11] MEDS: IPRATROPIUM BROM 0.5 MG/2.5ML INH SOL NEB SCH ×3 (06:40→18:40)
[2023-04-11 06:59] LABS: Basophils # (auto) 0 10 ^3/uL (0-0.2); Basophils % (auto) 0.5 % (0.0-2.0); Eosinophils # (auto) 0.3 10 ^3/uL (0-0.8); Eosinophils % (auto) 5.2 % (0.0-7.0); Hematocrit 34.4 % (41.0-53.0); Hemoglobin 11.4 g/dL (13.5-17.5); Lymphocytes # (auto) 1.3 10 ^3/uL (0.4-5.4); Lymphocytes % (auto) 25.4 % (10.0-50.0); Mean Corpuscular Hemoglobin 31.4 pg (28.0-32.0); Mean Corpuscular Volume 95.2 fL (80.0-100.0); Monocytes # (auto) 0.3 10 ^3/uL (0-1.3); Monocytes % (auto) 6.9 % (0.0-12.0); Neutrophils # (auto) 3.1 10 ^3/uL (1.6-8.6); Nucleated Red Blood Cells % 0.1 %; Red Blood Cells 3.61 10^6/uL (4.5-5.90); Red Cell Distribution Width 15.6 % (11.8-14.3); White Blood Cell 5.1 10^3/uL (4.4-10.8)
[2023-04-11 08:58] LABS: Albumin 3.9 g/dL (3.2-4.8); Alkaline Phosphatase 442 U/L (46-116); Anion Gap 8 (5-15); Aspartate Aminotransferase 11 U/L (13-40); BUN/Creatinine Ratio 3.7 (10.0-20.0); Blood Urea Nitrogen 21 mg/dL (9-23); Calcium 8.8 mg/dL (8.5-10.1); Carbon Dioxide 29 mmol/L (20-30); Chloride 101 mmol/L (98-107); Glucose 80 mg/dL (74-106); Sodium 138 mmol/L (136-145)
[2023-04-11 09:00] LABS: Alanine Aminotransferase < 9 U/L (7-40); Bilirubin, Total 0.6 mg/dL (0.2-1.0); Total Protein 7.7 g/dL (5.7-8.2)
[2023-04-11] MEDS: hydrALAZINE HCL 20 MG/ML VL IV PRN ×2 (09:11→21:54)
[2023-04-11 10:36] LABS: Hepatitis B Surface Antibody Positive (Negative)
[2023-04-11] MEDS: ISOSORBIDE DINITRATE 10 MG TAB PO SCH (10:38)
[2023-04-11] MEDS: PANTOPRAZOLE 40 MG TAB PO SCH (10:38)
[2023-04-11] MEDS: ASPirin 81 mg TAB PO SCH (10:38)
[2023-04-11 10:48] LABS: Hepatitis B Surface Antigen Negative (Negative)
[2023-04-11 11:51] LABS: INR 1.02 (0.9-1.15); Partial Thromboplastin Time 26.2 SEC (24.5-34.5); Prothrombin Time 10.7 sec (9.3-11.8)
[2023-04-12] VITALS (13 sets, daily range): BP systolic 117–129; BP diastolic 60–69; PULSE 78–88; RESP 16–20; TEMP 98.2–98.7; O2SAT 96–100
[2023-04-12] MEDS: IPRATROPIUM BROM 0.5 MG/2.5ML INH SOL NEB SCH ×3 (06:46→18:28)
[2023-04-12] MEDS: ALBUTEROL SULF 2.5 MG/0.5ML(0.5%) NEB SOLN NEB SCH ×3 (06:46→18:28)
[2023-04-12 06:48] LABS: Anion Gap 8 (5-15); Carbon Dioxide 26 mmol/L (20-30); Chloride 101 mmol/L (98-107); Potassium 4.5 mmol/L (3.5-5.1); Sodium 135 mmol/L (136-145)
[2023-04-12 06:49] LABS: Calcium 8.5 mg/dL (8.7-10.4)
[2023-04-12 06:51] LABS: Basophils # (auto) 0.1 10 ^3/uL (0-0.2); Basophils % (auto) 1.2 % (0.0-2.0); Eosinophils # (auto) 0.2 10 ^3/uL (0-0.8); Eosinophils % (auto) 4.9 % (0.0-7.0); Hematocrit 34.3 % (41.0-53.0); Hemoglobin 11.1 g/dL (13.5-17.5); Lymphocytes # (auto) 1.1 10 ^3/uL (0.4-5.4); Mean Corpuscular Hemoglobin 31.2 pg (28.0-32.0); Mean Corpuscular Hgb Conc. 32.4 g/dL (32.0-36.0); Mean Corpuscular Volume 96.1 fL (80.0-100.0); Monocytes # (auto) 0.3 10 ^3/uL (0-1.3); Monocytes % (auto) 6.7 % (0.0-12.0); Neutrophils # (auto) 3.2 10 ^3/uL (1.6-8.6); Neutrophils % (auto) 64.2 % (37.0-80.0); Red Blood Cells 3.57 10^6/uL (4.5-5.90); Red Cell Distribution Width 15.3 % (11.8-14.3)
[2023-04-12 06:54] LABS: BUN/Creatinine Ratio 2.9 (10.0-20.0); Blood Urea Nitrogen 21 mg/dL (9-23); Glucose 77 mg/dL (74-106); Magnesium 1.9 mg/dL (1.6-2.6)
[2023-04-12 06:56] LABS: Phosphorus 4.6 mg/dL (2.4-5.1)
[2023-04-12] MEDS ORDERED: CAR3125T PO (09:53)
[2023-04-12] MEDS ORDERED: ASPI-325 PO (09:53)
[2023-04-12] MEDS ORDERED: ISOS10TA2 PO (09:53)
[2023-04-12] MEDS ORDERED: PANT40T PO (09:53)
[2023-04-12] MEDS ORDERED: SACU1TAB PO (09:53)
[2023-04-12] MEDS ORDERED: CARVEDILOL 3.125 MG TAB PO SCH (10:00)
[2023-04-12] MEDS ORDERED: SACUBITRIL-VALSARTAN 24mg/26mg TAB PO SCH (10:00)
[2023-04-12] MEDS: ASPirin 81 mg TAB PO SCH (10:51)
[2023-04-12] MEDS: PANTOPRAZOLE 40 MG TAB PO SCH (10:51)
[2023-04-12] MEDS: ISOSORBIDE DINITRATE 10 MG TAB PO SCH (10:52)
== END 2023-04-12 20:00 | disposition home health service (06) | DRG 280 ==
LOC: EDBD 13:14 → EDUNIT# 13:14 → ER 13:14 → TELE 18:03 → TELE-WESTW 04-08 11:30
PROVIDERS: ADMIT Nurse Practitioner Family; ATTEND Nurse Practitioner
PROC: 5A09357 Assistance with Respiratory Ventilation, Less than 24 Consecutive Hours, Continuous Positive Airway Pressure (ICD-10-PCS; principal; 2023-04-07)
PROC: 05HA33Z Insertion of Infusion Device into Left Brachial Vein, Percutaneous Approach (ICD-10-PCS; 2023-04-07)
PROC: B54NZZA Ultrasonography of Left Upper Extremity Veins, Guidance (ICD-10-PCS; 2023-04-07)
PROC: 5A1D70Z Performance of Urinary Filtration, Intermittent, Less than 6 Hours Per Day (ICD-10-PCS; 2023-04-09)
PROC: 5A1D70Z Performance of Urinary Filtration, Intermittent, Less than 6 Hours Per Day (ICD-10-PCS; 2023-04-11)
DX: I13.2 Hypertensive heart and chronic kidney disease with heart failure and with stage 5 chronic kidney disease, or end stage renal disease (principal); I21.4 Non-ST elevation (NSTEMI) myocardial infarction; I50.23 Acute on chronic systolic (congestive) heart failure; J96.01 Acute respiratory failure with hypoxia; N18.6 End stage renal disease; I69.351 Hemiplegia and hemiparesis following cerebral infarction affecting right dominant side; E87.20 Acidosis, unspecified; I16.1 Hypertensive emergency; R47.01 Aphasia; Z99.2 Dependence on renal dialysis; R79.89 Other specified abnormal findings of blood chemistry; E78.5 Hyperlipidemia, unspecified; G40.909 Epilepsy, unspecified, not intractable, without status epilepticus; I25.10 Atherosclerotic heart disease of native coronary artery without angina pectoris; R04.0 Epistaxis; D64.9 Anemia, unspecified; F09 Unspecified mental disorder due to known physiological condition; I25.2 Old myocardial infarction; Z79.82 Long term (current) use of aspirin; Z79.899 Other long term (current) drug therapy; Z82.3 Family history of stroke; Z87.820 Personal history of traumatic brain injury; Z95.5 Presence of coronary angioplasty implant and graft
CPT/HCPCS: 36415; 36600; 70450; 71045; 74176; 76604; 76700; 78582; 80048; 80053; 80061; 82270; 82607; 82805; 83605; 83735; 83880; 84100; 84484; 85014; 85018; 85025; 85379; 85610; 85730; 86706; 87040; 87340; 90935; 92610; 93005; 93306; 93970; 94640; 94660; 95819; 96365; 97110; 97116; 97163; 97530; 99291; G0378; J1642; J2543

== ENCOUNTER 2023-04-15 12:35 | Inpatient (IN) | payer MEDICARE, OTHER ==
[~2023-04-15] VITALS: Ht 157.5 cm; Wt 60.9 kg
[~2023-04-15 12:35] MED LIST changes: -AMLO1TAB22 PO; +ASPI-325 PO; +CAR3125T PO; -HYDR25TA87 PO; +ISOS10TA2 PO; +PANT40T PO; +SACU1TAB PO
[2023-04-15 14:30] LABS: Basophils # (auto) 0.1 10 ^3/uL (0-0.2); Basophils % (auto) 0.6 % (0.0-2.0); Eosinophils # (auto) 0 10 ^3/uL (0-0.8); Hematocrit 35.5 % (41.0-53.0); Hemoglobin 11.3 g/dL (13.5-17.5); Lymphocytes # (auto) 0.7 10 ^3/uL (0.4-5.4); Lymphocytes % (auto) 5.5 % (10.0-50.0); Mean Corpuscular Hemoglobin 30.3 pg (28.0-32.0); Mean Corpuscular Hgb Conc. 31.9 g/dL (32.0-36.0); Mean Corpuscular Volume 95.1 fL (80.0-100.0); Monocytes # (auto) 0.6 10 ^3/uL (0-1.3); Monocytes % (auto) 4.6 % (0.0-12.0); Neutrophils # (auto) 10.9 10 ^3/uL (1.6-8.6); Neutrophils % (auto) 89.3 % (37.0-80.0); Red Blood Cells 3.74 10^6/uL (4.5-5.90); Red Cell Distribution Width 15.2 % (11.8-14.3); White Blood Cell 12.2 10^3/uL (4.4-10.8)
[2023-04-15 14:50] LABS: Albumin 3.3 g/dL (3.2-4.8); Alkaline Phosphatase 360 U/L (46-116); Anion Gap 11 (5-15); Aspartate Aminotransferase 22 U/L (13-40); BUN/Creatinine Ratio 4.4 (10.0-20.0); Blood Urea Nitrogen 34 mg/dL (9-23); Calcium 6.7 mg/dL (8.7-10.4); Carbon Dioxide 25 mmol/L (20-30); Chloride 100 mmol/L (98-107); Glucose 99 mg/dL (74-106); Magnesium 1.7 mg/dL (1.6-2.6); Potassium 4.6 mmol/L (3.5-5.1); Sodium 136 mmol/L (136-145)
[2023-04-15 14:51] LABS: Bilirubin, Total 0.3 mg/dL (0.2-1.0); Total Protein 6.6 g/dL (5.7-8.2)
[2023-04-15 14:54] LABS: Alanine Aminotransferase < 9 U/L (7-40)
[2023-04-15] MEDS ORDERED: HEPARIN SODIUM (PORCINE) 5000 UNITS/ML 1ML VIAL IV ONE ×2 (15:15→16:30)
[2023-04-15] MEDS ORDERED: ASPirin 81 mg TAB PO ONE (15:15)
[2023-04-15] MEDS ORDERED: HEPARIN DRIP/D5W 100UNITS/ML 250 ML IV SCH ×2 (15:15→16:30)
[2023-04-15 15:43] LABS: INR 1.13 (0.9-1.15); Partial Thromboplastin Time 40.2 SEC (24.5-34.5); Prothrombin Time 11.8 sec (9.3-11.8)
[2023-04-15] MEDS ORDERED: ONDANSETRON HCL 4 MG/2 ML VIAL IV PRN (16:30)
[2023-04-15] MEDS ORDERED: MORPHINE SULFATE INJ 2 MG/ml SYRG IV PRN ×2 (16:30)
[2023-04-15] MEDS ORDERED: NITROGLYCERIN 0.4 MG SL TAB SL PRN ×2 (16:30)
[2023-04-15] MEDS ORDERED: ALBUTEROL SULF HFA 90MCG INH 200DOSE IN PRN (16:30)
[2023-04-15 16:36] VITALS: PULSE 91; RESP 12; O2SAT 95
[2023-04-15 20:00] VITALS: PULSE 86; RESP 24; O2SAT 95
[2023-04-15] MEDS ORDERED: ALBUTEROL MEDNEB 2.5 mg/3ml NEB NEB PRN (22:15)
[2023-04-15] MEDS: PANTOPRAZOLE 40 MG/10 ML VIAL INJ IV SCH (22:37)
[2023-04-15] MEDS: SACUBITRIL-VALSARTAN 24mg/26mg TAB PO SCH (22:37)
[2023-04-15 22:39] VITALS: BP 117/49; PULSE 82; RESP 18; TEMP 98.2; O2SAT 94
[2023-04-15 23:09] LABS: INR 1.06 (0.9-1.15); Prothrombin Time 11.1 sec (9.3-11.8)
[2023-04-15 23:20] LABS: Partial Thromboplastin Time 92.5 SEC (24.5-34.5)
[2023-04-16] VITALS (10 sets, daily range): BP systolic 98–141; BP diastolic 52–85; PULSE 65–84; RESP 14–19; TEMP 84.1–100.4; O2SAT 94–98
[2023-04-16] MEDS ORDERED: HEPARIN DRIP/D5W 100UNITS/ML 250 ML IV SCH (00:30)
[2023-04-16] MEDS: ACETAMINOPHEN 325 MG TAB PO PRN (01:00)
[2023-04-16 05:20] LABS: Basophils # (auto) 0.2 10 ^3/uL (0-0.2); Basophils % (auto) 1.8 % (0.0-2.0); Eosinophils # (auto) 0 10 ^3/uL (0-0.8); Eosinophils % (auto) 0.5 % (0.0-7.0); Hematocrit 33.1 % (41.0-53.0); Hemoglobin 10.8 g/dL (13.5-17.5); Lymphocytes # (auto) 0.9 10 ^3/uL (0.4-5.4); Lymphocytes % (auto) 11.1 % (10.0-50.0); Mean Corpuscular Hemoglobin 30.6 pg (28.0-32.0); Mean Corpuscular Hgb Conc. 32.7 g/dL (32.0-36.0); Mean Corpuscular Volume 93.7 fL (80.0-100.0); Monocytes # (auto) 0.6 10 ^3/uL (0-1.3); Monocytes % (auto) 6.9 % (0.0-12.0); Neutrophils # (auto) 6.6 10 ^3/uL (1.6-8.6); Neutrophils % (auto) 79.7 % (37.0-80.0); Red Blood Cells 3.53 10^6/uL (4.5-5.90); White Blood Cell 8.3 10^3/uL (4.4-10.8)
[2023-04-16 05:37] LABS: Alkaline Phosphatase 303 U/L (46-116); Anion Gap 9 (5-15); Aspartate Aminotransferase 21 U/L (13-40); Bilirubin, Total 0.3 mg/dL (0.2-1.0); Blood Urea Nitrogen 35 mg/dL (9-23); Calcium 7.1 mg/dL (8.7-10.4); Carbon Dioxide 26 mmol/L (20-30); Chloride 99 mmol/L (98-107); Glucose 85 mg/dL (74-106); Potassium 4.5 mmol/L (3.5-5.1); Sodium 134 mmol/L (136-145); Total Protein 6.2 g/dL (5.7-8.2)
[2023-04-16 05:39] LABS: Alanine Aminotransferase < 9 U/L (7-40)
[2023-04-16] MEDS: HEPARIN DRIP/D5W 100UNITS/ML 250 ML IV SCH (07:43)
[2023-04-16] MEDS: PANTOPRAZOLE 40 MG/10 ML VIAL INJ IV SCH ×2 (10:12→22:35)
[2023-04-16] MEDS: ALLOPURINOL 100 MG TAB PO SCH (10:13)
[2023-04-16] MEDS: ASPirin-EC 81 mg tab PO SCH (10:13)
[2023-04-16] MEDS: SACUBITRIL-VALSARTAN 24mg/26mg TAB PO SCH ×2 (10:13→22:35)
[2023-04-16] MEDS: ISOSORBIDE DINITRATE 10 MG TAB PO SCH (10:15)
[2023-04-16] MEDS ORDERED: SODIUM CHL 0.9% 1000 ML BAG XX ONE (12:00)
[2023-04-16 13:58] LABS: INR 1.05 (0.9-1.15); Partial Thromboplastin Time 52.3 SEC (24.5-34.5)
[2023-04-16 20:16] LABS: Partial Thromboplastin Time 50.1 SEC (24.5-34.5); Prothrombin Time 10.5 sec (9.3-11.8)
[2023-04-16] MEDS ORDERED: EPOETIN ALFA-EPBX 10,000 UNIT/1ML VIAL SC ONE (21:00)
[2023-04-17] VITALS (10 sets, daily range): BP systolic 97–128; BP diastolic 59–77; PULSE 75–98; RESP 16–19; TEMP 99–100; O2SAT 95–99
[2023-04-17 00:34] LABS: INR 1.04 (0.9-1.15); Prothrombin Time 10.9 sec (9.3-11.8)
[2023-04-17 00:53] LABS: Partial Thromboplastin Time 73.4 SEC (24.5-34.5)
[2023-04-17] MEDS: HEPARIN DRIP/D5W 100UNITS/ML 250 ML IV SCH (01:39)
[2023-04-17 09:05] LABS: Basophils # (auto) 0 10 ^3/uL (0-0.2); Basophils % (auto) 0.3 % (0.0-2.0); Eosinophils # (auto) 0 10 ^3/uL (0-0.8); Eosinophils % (auto) 0.3 % (0.0-7.0); Hematocrit 37.3 % (41.0-53.0); Hemoglobin 12.3 g/dL (13.5-17.5); Lymphocytes % (auto) 14.5 % (10.0-50.0); Mean Corpuscular Hemoglobin 31.2 pg (28.0-32.0); Mean Corpuscular Hgb Conc. 32.9 g/dL (32.0-36.0); Mean Corpuscular Volume 94.8 fL (80.0-100.0); Monocytes # (auto) 0.6 10 ^3/uL (0-1.3); Monocytes % (auto) 8.9 % (0.0-12.0); Neutrophils # (auto) 5.2 10 ^3/uL (1.6-8.6); Nucleated Red Blood Cells % 0.1 %; Red Blood Cells 3.93 10^6/uL (4.5-5.90); Red Cell Distribution Width 14.8 % (11.8-14.3); White Blood Cell 6.9 10^3/uL (4.4-10.8)
[2023-04-17 09:19] LABS: Albumin 3.2 g/dL (3.2-4.8); Alkaline Phosphatase 271 U/L (46-116); Anion Gap 11 (5-15); Aspartate Aminotransferase 24 U/L (13-40); BUN/Creatinine Ratio 4.5 (10.0-20.0); Calcium 7.4 mg/dL (8.5-10.1); Carbon Dioxide 23 mmol/L (20-30); Chloride 96 mmol/L (98-107); Glucose 82 mg/dL (74-106); Potassium 5.5 mmol/L (3.5-5.1); Sodium 130 mmol/L (136-145)
[2023-04-17 09:20] LABS: Alanine Aminotransferase < 9 U/L (7-40); Bilirubin, Total 0.2 mg/dL (0.2-1.0); Blood Urea Nitrogen 45 mg/dL (9-23); Total Protein 6.5 g/dL (5.7-8.2)
[2023-04-17 09:21] LABS: INR 1.02 (0.9-1.15); Partial Thromboplastin Time 49.5 SEC (24.5-34.5); Prothrombin Time 10.7 sec (9.3-11.8)
[2023-04-17] MEDS: ASPirin-EC 81 mg tab PO SCH (09:25)
[2023-04-17] MEDS: ALLOPURINOL 100 MG TAB PO SCH (09:25)
[2023-04-17] MEDS: SACUBITRIL-VALSARTAN 24mg/26mg TAB PO SCH ×2 (09:25→21:23)
[2023-04-17] MEDS: PANTOPRAZOLE 40 MG/10 ML VIAL INJ IV SCH ×2 (09:25→21:23)
[2023-04-17] MEDS: ISOSORBIDE DINITRATE 10 MG TAB PO SCH (09:26)
[2023-04-17] MEDS ORDERED: SODIUM ZIRCONIUM CYCL 10 GM PAK PO ONE (10:15)
[2023-04-17] MEDS ORDERED: CALCIUM GLUC 1,000mg/50ml-NS 50 ML IV ONE (10:15)
[2023-04-17] MEDS: SODIUM ZIRCONIUM CYCL 10 GM PAK PO SCH ×4 (11:15→21:23)
[2023-04-17 11:59] LABS: Triglycerides 117 mg/dL (< 150)
[2023-04-17 12:00] LABS: LDL Cholesterol 78 mg/dL (< 100)
[2023-04-17 12:01] LABS: Cholesterol 151 mg/dL (< 200); HDL Cholesterol 43 mg/dL (40-59)
[2023-04-17] MEDS: ACETAMINOPHEN 325 MG TAB PO PRN (19:06)
[2023-04-17] MEDS: ATORVASTATIN 20 MG TAB PO SCH (21:23)
[2023-04-18] VITALS (10 sets, daily range): BP systolic 104–131; BP diastolic 65–85; PULSE 82–109; RESP 18–20; TEMP 98.1–100.4; O2SAT 93–99
[2023-04-18] MEDS: ACETAMINOPHEN 325 MG TAB PO PRN (05:08)
[2023-04-18 05:37] LABS: INR 1.05 (0.9-1.15); Partial Thromboplastin Time 52.4 SEC (24.5-34.5)
[2023-04-18] MEDS: HEPARIN DRIP/D5W 100UNITS/ML 250 ML IV SCH (06:02)
[2023-04-18] MEDS: ISOSORBIDE DINITRATE 10 MG TAB PO SCH (09:03)
[2023-04-18] MEDS: SACUBITRIL-VALSARTAN 24mg/26mg TAB PO SCH ×2 (09:03→21:39)
[2023-04-18] MEDS: PANTOPRAZOLE 40 MG/10 ML VIAL INJ IV SCH ×2 (09:03→21:39)
[2023-04-18] MEDS: ASPirin-EC 81 mg tab PO SCH (09:03)
[2023-04-18] MEDS: ALLOPURINOL 100 MG TAB PO SCH (09:03)
[2023-04-18 14:42] LABS: Chloride 98 mmol/L (98-107); Potassium 3.8 mmol/L (3.5-5.1); Sodium 135 mmol/L (136-145)
[2023-04-18 14:43] LABS: Anion Gap 9 (5-15); Calcium 7.8 mg/dL (8.5-10.1); Carbon Dioxide 28 mmol/L (20-30)
[2023-04-18 14:48] LABS: BUN/Creatinine Ratio 3.3 (10.0-20.0); Blood Urea Nitrogen 23 mg/dL (9-23); Glucose 106 mg/dL (74-106)
[2023-04-18 15:45] LABS: INR 1.07 (0.9-1.15); Partial Thromboplastin Time 67.3 SEC (24.5-34.5); Prothrombin Time 11.2 sec (9.3-11.8)
[2023-04-18] MEDS: HYDROcodone-ACET 5/325MG TAB PO PRN (21:39)
[2023-04-18] MEDS: ATORVASTATIN 20 MG TAB PO SCH (21:39)
[2023-04-19] VITALS (13 sets, daily range): BP systolic 89–126; BP diastolic 53–78; PULSE 78–101; RESP 11–19; TEMP 98.8–100.6; O2SAT 91–100
[2023-04-19] MEDS: HEPARIN DRIP/D5W 100UNITS/ML 250 ML IV SCH (06:00)
[2023-04-19 06:42] LABS: Basophils # (auto) 0 10 ^3/uL (0-0.2); Basophils % (auto) 0.4 % (0.0-2.0); Eosinophils # (auto) 0.1 10 ^3/uL (0-0.8); Eosinophils % (auto) 0.5 % (0.0-7.0); Hematocrit 36.8 % (41.0-53.0); Hemoglobin 12.1 g/dL (13.5-17.5); Lymphocytes # (auto) 1.2 10 ^3/uL (0.4-5.4); Lymphocytes % (auto) 11.4 % (10.0-50.0); Mean Corpuscular Hemoglobin 30.9 pg (28.0-32.0); Mean Corpuscular Hgb Conc. 32.9 g/dL (32.0-36.0); Mean Corpuscular Volume 93.8 fL (80.0-100.0); Monocytes # (auto) 0.7 10 ^3/uL (0-1.3); Monocytes % (auto) 7.3 % (0.0-12.0); Neutrophils # (auto) 8.2 10 ^3/uL (1.6-8.6); Neutrophils % (auto) 80.4 % (37.0-80.0); Red Blood Cells 3.92 10^6/uL (4.5-5.90); Red Cell Distribution Width 14.5 % (11.8-14.3); White Blood Cell 10.2 10^3/uL (4.4-10.8)
[2023-04-19] MEDS ORDERED: ANGIOMAX 250 MG VIAL IV ONE (08:49)
[2023-04-19] MEDS ORDERED: VERAPAMIL 2.5MG/ML INJ 2ML VIAL IV ONE (08:49)
[2023-04-19] MEDS ORDERED: fentaNYL CITRATE 100 MCG/2 ML VL ONE (08:49)
[2023-04-19] MEDS ORDERED: MIDAZOLAM HCL 2MG/2ML 2ml VIAL (1mg/ml) ONE (08:49)
[2023-04-19] MEDS ORDERED: HEPARIN SODIUM (PORCINE) 5000 UNITS/ML 1ML VIAL ONE (08:49)
[2023-04-19] MEDS ORDERED: SODIUM CHL 0.9% 0 ML ONE (08:50)
[2023-04-19] MEDS: ASPirin-EC 81 mg tab PO SCH (08:53)
[2023-04-19] MEDS ORDERED: IODIXANOL 320MG/ML 100ML BTL IV ONE (08:55)
[2023-04-19] MEDS ORDERED: LIDOCAINE 2%HCL (LOCAL ANESTH.) INJ 20ML MDV ONE (08:55)
[2023-04-19] MEDS: PANTOPRAZOLE 40 MG/10 ML VIAL INJ IV SCH ×2 (09:47→21:23)
[2023-04-19] MEDS: ISOSORBIDE DINITRATE 10 MG TAB PO SCH (09:48)
[2023-04-19] MEDS: SACUBITRIL-VALSARTAN 24mg/26mg TAB PO SCH ×2 (09:48→21:22)
[2023-04-19] MEDS: ALLOPURINOL 100 MG TAB PO SCH (09:48)
[2023-04-19] MEDS: ATORVASTATIN 20 MG TAB PO SCH (21:22)
[2023-04-19] MEDS ORDERED: HEPARIN DRIP/D5W 100UNITS/ML 250 ML IV SCH (22:15)
[2023-04-20] VITALS (9 sets, daily range): BP systolic 93–116; BP diastolic 42–72; PULSE 82–113; RESP 18–20; TEMP 98.1–100.5; O2SAT 92–98
[2023-04-20] MEDS: HYDROcodone-ACET 5/325MG TAB PO PRN ×2 (03:36→21:20)
[2023-04-20 05:14] LABS: INR 1.14 (0.9-1.15); Partial Thromboplastin Time 66.9 SEC (24.5-34.5); Prothrombin Time 11.9 sec (9.3-11.8)
[2023-04-20] MEDS: SACUBITRIL-VALSARTAN 24mg/26mg TAB PO SCH ×2 (10:00→21:19)
[2023-04-20] MEDS: ASPirin-EC 81 mg tab PO SCH (10:00)
[2023-04-20] MEDS: ISOSORBIDE DINITRATE 10 MG TAB PO SCH (10:00)
[2023-04-20] MEDS: PANTOPRAZOLE 40 MG/10 ML VIAL INJ IV SCH ×2 (10:57→21:19)
[2023-04-20] MEDS: ALLOPURINOL 100 MG TAB PO SCH (10:57)
[2023-04-20 11:09] LABS: INR 1.12 (0.9-1.15); Partial Thromboplastin Time 59.9 SEC (24.5-34.5); Prothrombin Time 11.7 sec (9.3-11.8)
[2023-04-20 17:07] LABS: INR 1.14 (0.9-1.15); Prothrombin Time 11.9 sec (9.3-11.8)
[2023-04-20 17:25] LABS: Partial Thromboplastin Time 80.4 SEC (24.5-34.5)
[2023-04-20] MEDS ORDERED: HEPARIN DRIP/D5W 100UNITS/ML 250 ML IV SCH (17:30)
[2023-04-20] MEDS: ATORVASTATIN 20 MG TAB PO SCH (21:19)
[2023-04-20] MEDS: ACETAMINOPHEN 325 MG TAB PO PRN (22:01)
[2023-04-20] MEDS ORDERED: AMIODARONE 450mg/250ml AE 250 ML IV ONE (23:45)
[2023-04-20] MEDS ORDERED: AMIODARONE HCL (50 MG/ ML) 3 ML VIAL IV ONE (23:45)
[2023-04-20] MEDS ORDERED: NOREPINEPHRINE 8 MG/250ML KIT 250 ML IV SCH (23:45)
[2023-04-20] MEDS ORDERED: AMIODARONE BOLUS KIT 100 ML IV ONE (23:45)
[2023-04-20] MEDS ORDERED: NOREPINEPHRINE 8 MG/250ML KIT 250 ML IV ONE (23:49)
[2023-04-20 23:56] LABS: INR 1.15 (0.9-1.15); Partial Thromboplastin Time 45.1 SEC (24.5-34.5)
[2023-04-21] VITALS (11 sets, daily range): BP systolic 91–151; BP diastolic 35–80; PULSE 81–145; RESP 19–29; TEMP 37; O2SAT 96–100
[2023-04-21] MEDS ORDERED: AMIODARONE 450mg/250ml AE 250 ML IV SCH ×2 (06:00)
[2023-04-21 07:03] LABS: Basophils # (auto) 0.1 10 ^3/uL (0-0.2); Basophils % (auto) 0.7 % (0.0-2.0); Eosinophils # (auto) 0.2 10 ^3/uL (0-0.8); Eosinophils % (auto) 1.8 % (0.0-7.0); Hematocrit 35.9 % (41.0-53.0); Hemoglobin 11.7 g/dL (13.5-17.5); Lymphocytes # (auto) 1.1 10 ^3/uL (0.4-5.4); Lymphocytes % (auto) 9.7 % (10.0-50.0); Mean Corpuscular Hemoglobin 30.5 pg (28.0-32.0); Mean Corpuscular Hgb Conc. 32.5 g/dL (32.0-36.0); Mean Corpuscular Volume 93.9 fL (80.0-100.0); Monocytes # (auto) 0.9 10 ^3/uL (0-1.3); Monocytes % (auto) 7.5 % (0.0-12.0); Neutrophils # (auto) 9.4 10 ^3/uL (1.6-8.6); Neutrophils % (auto) 80.3 % (37.0-80.0); Red Blood Cells 3.82 10^6/uL (4.5-5.90); Red Cell Distribution Width 14.3 % (11.8-14.3); White Blood Cell 11.8 10^3/uL (4.4-10.8)
[2023-04-21 07:10] LABS: Albumin 3.1 g/dL (3.2-4.8); Alkaline Phosphatase 250 U/L (46-116); Anion Gap 8 (5-15); Aspartate Aminotransferase 28 U/L (13-40); Blood Urea Nitrogen 30 mg/dL (9-23); Carbon Dioxide 29 mmol/L (20-30); Chloride 94 mmol/L (98-107); Glucose 114 mg/dL (74-106); Sodium 131 mmol/L (136-145)
[2023-04-21 07:11] LABS: Bilirubin, Total 0.3 mg/dL (0.2-1.0); Total Protein 6.4 g/dL (5.7-8.2)
[2023-04-21 07:26] LABS: INR 1.21 (0.9-1.15); Prothrombin Time 12.5 sec (9.3-11.8)
[2023-04-21 07:28] LABS: Alanine Aminotransferase < 9 U/L (7-40)
[2023-04-21 07:34] LABS: Partial Thromboplastin Time > 139.0 SEC (24.5-34.5)
[2023-04-21] MEDS ORDERED: HEPARIN DRIP/D5W 100UNITS/ML 250 ML IV SCH (08:33)
[2023-04-21] MEDS: PANTOPRAZOLE 40 MG/10 ML VIAL INJ IV SCH (10:48)
[2023-04-21] MEDS: SACUBITRIL-VALSARTAN 24mg/26mg TAB PO SCH (10:49)
[2023-04-21] MEDS: ASPirin-EC 81 mg tab PO SCH (10:49)
[2023-04-21] MEDS: ALLOPURINOL 100 MG TAB PO SCH (10:49)
[2023-04-21] MEDS: ISOSORBIDE DINITRATE 10 MG TAB PO SCH (10:51)
== END 2023-04-21 12:00 | disposition short-term general hospital (02) | DRG 280 ==
LOC: ER 12:35 → TELE 16:25 → TELE-WESTW 23:55 → ICU WEST 04-21 00:10
PROVIDERS: ADMIT Nurse Practitioner; ATTEND Nurse Practitioner
PROC: 05HA33Z Insertion of Infusion Device into Left Brachial Vein, Percutaneous Approach (ICD-10-PCS; 2023-04-15)
PROC: B54NZZA Ultrasonography of Left Upper Extremity Veins, Guidance (ICD-10-PCS; 2023-04-15)
PROC: 5A1D70Z Performance of Urinary Filtration, Intermittent, Less than 6 Hours Per Day (ICD-10-PCS; 2023-04-18)
PROC: 4A023N7 Measurement of Cardiac Sampling and Pressure, Left Heart, Percutaneous Approach (ICD-10-PCS; principal; 2023-04-19)
PROC: B211YZZ Fluoroscopy of Multiple Coronary Arteries using Other Contrast (ICD-10-PCS; 2023-04-19)
PROC: B215YZZ Fluoroscopy of Left Heart using Other Contrast (ICD-10-PCS; 2023-04-19)
PROC: 5A1D70Z Performance of Urinary Filtration, Intermittent, Less than 6 Hours Per Day (ICD-10-PCS; 2023-04-20)
DX: I21.4 Non-ST elevation (NSTEMI) myocardial infarction (principal); I50.33 Acute on chronic diastolic (congestive) heart failure; N18.6 End stage renal disease; I13.2 Hypertensive heart and chronic kidney disease with heart failure and with stage 5 chronic kidney disease, or end stage renal disease; R47.01 Aphasia; E87.1 Hypo-osmolality and hyponatremia; I69.351 Hemiplegia and hemiparesis following cerebral infarction affecting right dominant side; D63.1 Anemia in chronic kidney disease; E78.5 Hyperlipidemia, unspecified; F09 Unspecified mental disorder due to known physiological condition; G40.909 Epilepsy, unspecified, not intractable, without status epilepticus; I25.10 Atherosclerotic heart disease of native coronary artery without angina pectoris; E87.5 Hyperkalemia; I25.5 Ischemic cardiomyopathy; M10.9 Gout, unspecified; I48.0 Paroxysmal atrial fibrillation; Z79.82 Long term (current) use of aspirin; Z79.899 Other long term (current) drug therapy; Z82.3 Family history of stroke; Z99.2 Dependence on renal dialysis; Z98.61 Coronary angioplasty status; I25.2 Old myocardial infarction
CPT/HCPCS: 36415; 70450; 71045; 80048; 80053; 80061; 83735; 83880; 84484; 85025; 85379; 85610; 85730; 86850; 86900; 86901; 87081; 90935; 93005; 93458; 96374; 97110; 97163; 97530; 99152; 99291; C1894; C9113; G0378; J1642; J2250; Q9967

== ENCOUNTER 2023-04-26 08:56 | Inpatient (IN) | payer MEDICARE, OTHER ==
[~2023-04-26] VITALS: Ht 157.5 cm; Wt 76.1 kg
[2023-04-27] VITALS (8 sets, daily range): BP systolic 80–124; BP diastolic 41–56; PULSE 71–83; RESP 16–18; TEMP 97.7–98.2; O2SAT 95–97
[2023-04-27] MEDS ORDERED: HEPARIN SODIUM (PORCINE) 5000 UNITS/ML 1ML VIAL IV SCH (00:30)
[2023-04-27] MEDS ORDERED: MORPHINE SULFATE INJ 2 MG/ml SYRG IV PRN ×2 (00:30→20:30)
[2023-04-27] MEDS ORDERED: NITROGLYCERIN 0.4 MG SL TAB SL PRN ×2 (00:30→20:30)
[2023-04-27] MEDS ORDERED: HEPARIN DRIP/D5W 100UNITS/ML 250 ML IV SCH ×2 (00:30→17:45)
[2023-04-27] MEDS ORDERED: ACETAMINOPHEN 325 MG TAB PO PRN (02:45)
[2023-04-27 03:06] LABS: Basophils # (auto) 0 10 ^3/uL (0-0.2); Basophils % (auto) 0.3 % (0.0-2.0); Eosinophils # (auto) 0.1 10 ^3/uL (0-0.8); Eosinophils % (auto) 0.5 % (0.0-7.0); Hematocrit 32.1 % (41.0-53.0); Hemoglobin 10.3 g/dL (13.5-17.5); Lymphocytes # (auto) 0.6 10 ^3/uL (0.4-5.4); Lymphocytes % (auto) 5.3 % (10.0-50.0); Mean Corpuscular Hemoglobin 30.5 pg (28.0-32.0); Mean Corpuscular Volume 95.3 fL (80.0-100.0); Monocytes # (auto) 0.7 10 ^3/uL (0-1.3); Monocytes % (auto) 6.1 % (0.0-12.0); Neutrophils # (auto) 10.2 10 ^3/uL (1.6-8.6); Neutrophils % (auto) 87.8 % (37.0-80.0); Red Blood Cells 3.37 10^6/uL (4.5-5.90); White Blood Cell 11.6 10^3/uL (4.4-10.8)
[2023-04-27 03:22] LABS: Alkaline Phosphatase 321 U/L (46-116); Anion Gap 13 (5-15); Aspartate Aminotransferase 20 U/L (13-40); BUN/Creatinine Ratio 4.1 (10.0-20.0); Blood Urea Nitrogen 34 mg/dL (9-23); Calcium 7.8 mg/dL (8.7-10.4); Chloride 92 mmol/L (98-107); Glucose 73 mg/dL (74-106); Potassium 4.6 mmol/L (3.5-5.1)
[2023-04-27 03:23] LABS: Bilirubin, Total 0.2 mg/dL (0.2-1.0); Total Protein 6.6 g/dL (5.7-8.2)
[2023-04-27 03:32] LABS: Alanine Aminotransferase < 9 U/L (7-40); Carbon Dioxide 16 mmol/L (20-30); Sodium 121 mmol/L (136-145)
[2023-04-27 03:42] LABS: INR 1.43 (0.9-1.15); Partial Thromboplastin Time 53.8 SEC (24.5-34.5); Prothrombin Time 14.7 sec (9.3-11.8)
[2023-04-27] MEDS: LEVOTHYROXINE SODIUM 50 MCG TAB PO SCH (07:02)
[2023-04-27] MEDS: AMIODARONE HCL 200 MG TAB PO SCH ×2 (10:00→22:00)
[2023-04-27] MEDS: B-COMPLEX W/ C & FOLIC ACID(NEPHROVITE TAB) PO SCH (10:33)
[2023-04-27] MEDS: SACUBITRIL-VALSARTAN 24mg/26mg TAB PO SCH ×2 (10:33→22:00)
[2023-04-27] MEDS: ASPirin 81 mg TAB PO SCH (10:34)
[2023-04-27] MEDS: TICAGRELOR 90 MG TAB PO SCH (10:34)
[2023-04-27] MEDS: SEVELAMER 800 MG TAB PO SCH ×3 (10:34→18:00)
[2023-04-27] MEDS: CARVEDILOL 3.125 MG TAB PO SCH ×2 (10:35→22:00)
[2023-04-27] MEDS: ALLOPURINOL 100 MG TAB PO SCH (10:35)
[2023-04-27] MEDS: SODIUM BICARBONATE 650 MG TAB PO SCH (11:57)
[2023-04-27] MEDS ORDERED: SODIUM CHL 0.9% 1000 ML BAG XX ONE (12:15)
[2023-04-27 14:14] LABS: INR 1.61 (0.9-1.15); Prothrombin Time 16.4 sec (9.3-11.8)
[2023-04-27 14:23] LABS: Partial Thromboplastin Time 75.9 SEC (24.5-34.5)
[2023-04-27] MEDS ORDERED: LIDOCAINE 2%HCL (LOCAL ANESTH.) INJ 20ML MDV ONE (15:04)
[2023-04-27] MEDS ORDERED: ceFAZolin 1GM/50ML 50 ML IV ONE (15:18)
[2023-04-27] MEDS ORDERED: HEPARIN SODIUM (PORCINE) 5000 UNITS/ML 1ML VIAL ONE (15:31)
[2023-04-27] MEDS ORDERED: IOHEXOL 350 MG/ML 100ML IJ ONE (15:31)
[2023-04-27 15:50] LABS: Magnesium 2.5 mg/dL (1.6-2.6)
[2023-04-27 15:51] LABS: Phosphorus 6.2 mg/dL (2.4-5.1)
[2023-04-27] MEDS ORDERED: EPOETIN ALFA-EPBX 10,000 UNIT/1ML VIAL SC ONE (21:00)
[2023-04-27] MEDS ORDERED: SODIUM CHLORIDE 0.9% 250 ML IV ONE (23:45)
[2023-04-28] VITALS (15 sets, daily range): BP systolic 78–136; BP diastolic 21–66; PULSE 66–79; RESP 16–18; TEMP 97.2–98.8; O2SAT 96–98
[2023-04-28] MEDS: TICAGRELOR 90 MG TAB PO SCH ×3 (00:13→22:00)
[2023-04-28] MEDS: MIDODRINE HCL 10 MG TAB PO SCH ×2 (00:14→08:59)
[2023-04-28] MEDS: SODIUM BICARBONATE 650 MG TAB PO SCH ×3 (00:15→21:59)
[2023-04-28] MEDS: ATORVASTATIN 20 MG TAB PO SCH ×2 (00:17→22:00)
[2023-04-28 01:58] LABS: INR 1.7 (0.9-1.15); Prothrombin Time 17.2 sec (9.3-11.8)
[2023-04-28 02:09] LABS: Partial Thromboplastin Time 129.2 SEC (24.5-34.5)
[2023-04-28] MEDS ORDERED: HEPARIN DRIP/D5W 100UNITS/ML 250 ML IV SCH ×2 (03:15→08:30)
[2023-04-28] MEDS ORDERED: SODIUM CHLORIDE 0.9% 250 ML IV ONE (03:45)
[2023-04-28] MEDS: LEVOTHYROXINE SODIUM 50 MCG TAB PO SCH (06:38)
[2023-04-28 07:38] LABS: Eosinophils # (auto) 0.1 10 ^3/uL (0-0.8); Hemoglobin 8.3 g/dL (13.5-17.5); Lymphocytes # (auto) 0.7 10 ^3/uL (0.4-5.4); Mean Corpuscular Hemoglobin 30.2 pg (28.0-32.0); Monocytes # (auto) 0.6 10 ^3/uL (0-1.3); White Blood Cell 8.6 10^3/uL (4.4-10.8)
[2023-04-28 07:39] LABS: Basophils # (auto) 0.1 10 ^3/uL (0-0.2); Eosinophils % (auto) 1.1 % (0.0-7.0); Lymphocytes % (auto) 7.6 % (10.0-50.0); Mean Corpuscular Volume 91.4 fL (80.0-100.0); Monocytes % (auto) 7.2 % (0.0-12.0); Neutrophils # (auto) 7.1 10 ^3/uL (1.6-8.6); Neutrophils % (auto) 83.1 % (37.0-80.0); Red Blood Cells 2.73 10^6/uL (4.5-5.90); Red Cell Distribution Width 14.3 % (11.8-14.3)
[2023-04-28 08:02] LABS: Albumin 2.6 g/dL (3.2-4.8); Alkaline Phosphatase 243 U/L (46-116); Anion Gap 13 (5-15); Aspartate Aminotransferase 19 U/L (13-40); BUN/Creatinine Ratio 5.7 (10.0-20.0); Bilirubin, Total 0.2 mg/dL (0.2-1.0); Calcium 7.3 mg/dL (8.5-10.1); Carbon Dioxide 18 mmol/L (20-30); Chloride 92 mmol/L (98-107); Glucose 79 mg/dL (74-106); Potassium 4.6 mmol/L (3.5-5.1); Sodium 123 mmol/L (136-145); Total Protein 5.7 g/dL (5.7-8.2)
[2023-04-28 08:13] LABS: Alanine Aminotransferase < 9 U/L (7-40); Blood Urea Nitrogen 53 mg/dL (9-23)
[2023-04-28] MEDS: SEVELAMER 800 MG TAB PO SCH ×3 (08:48→18:59)
[2023-04-28] MEDS: PANTOPRAZOLE 40 MG TAB PO SCH (08:58)
[2023-04-28] MEDS: ASPirin 81 mg TAB PO SCH (08:59)
[2023-04-28] MEDS: ALLOPURINOL 100 MG TAB PO SCH (08:59)
[2023-04-28] MEDS: B-COMPLEX W/ C & FOLIC ACID(NEPHROVITE TAB) PO SCH (09:00)
[2023-04-28 09:16] LABS: Hepatitis B Surface Antigen Negative (Negative)
[2023-04-28 09:36] LABS: Hepatitis C Antibody Negative (Negative)
[2023-04-28] MEDS: HYDROcodone-ACET 5/325MG TAB PO PRN (09:56)
[2023-04-28] MEDS: SACUBITRIL-VALSARTAN 24mg/26mg TAB PO SCH ×2 (10:00→22:00)
[2023-04-28] MEDS: AMIODARONE HCL 200 MG TAB PO SCH ×2 (10:00→22:00)
[2023-04-28] MEDS: CARVEDILOL 3.125 MG TAB PO SCH ×2 (10:00→22:00)
[2023-04-28] MEDS: SODIUM FERRIC GLUCONATE 62.5 MG/5 ML IV SCH ×2 (12:33)
[2023-04-28] MEDS: ALBUMIN 25% 100 ML IV PRN ×3 (12:55→14:55)
[2023-04-28 15:10] LABS: INR 2.01 (0.9-1.15); Prothrombin Time 20.2 sec (9.3-11.8)
[2023-04-28 15:13] LABS: Partial Thromboplastin Time > 139.0 SEC (24.5-34.5)
[2023-04-28] MEDS ORDERED: DIPHENOXYLATE W/ATROPINE 2.5 MG TAB PO PRN (15:45)
[2023-04-28 17:20] LABS: INR 2.05 (0.9-1.15); Prothrombin Time 20.5 sec (9.3-11.8)
[2023-04-28 17:27] LABS: Partial Thromboplastin Time 93.5 SEC (24.5-34.5)
[2023-04-28] MEDS ORDERED: ALBUMIN 25% 100 ML IV ONE (18:15)
[2023-04-28 20:04] LABS: INR 2.12 (0.9-1.15); Prothrombin Time 21.2 sec (9.3-11.8)
[2023-04-28] MEDS: HEPARIN DRIP/D5W 100UNITS/ML 250 ML IV SCH (20:30)
[2023-04-29 03:27] LABS: Basophils # (auto) 0.1 10 ^3/uL (0-0.2); Basophils % (auto) 0.6 % (0.0-2.0); Eosinophils # (auto) 0.1 10 ^3/uL (0-0.8); Eosinophils % (auto) 0.5 % (0.0-7.0); Hematocrit 27.5 % (41.0-53.0); Hemoglobin 9.1 g/dL (13.5-17.5); Lymphocytes # (auto) 0.9 10 ^3/uL (0.4-5.4); Lymphocytes % (auto) 8.7 % (10.0-50.0); Mean Corpuscular Hemoglobin 30.5 pg (28.0-32.0); Mean Corpuscular Hgb Conc. 33.1 g/dL (32.0-36.0); Mean Corpuscular Volume 92.3 fL (80.0-100.0); Monocytes # (auto) 0.6 10 ^3/uL (0-1.3); Monocytes % (auto) 6.1 % (0.0-12.0); Neutrophils # (auto) 8.5 10 ^3/uL (1.6-8.6); Neutrophils % (auto) 84.1 % (37.0-80.0); Nucleated Red Blood Cells % 0.1 %; Red Blood Cells 2.98 10^6/uL (4.5-5.90); Red Cell Distribution Width 14.4 % (11.8-14.3); White Blood Cell 10.2 10^3/uL (4.4-10.8)
[2023-04-29 03:31] LABS: Albumin 3.4 g/dL (3.2-4.8); Alkaline Phosphatase 229 U/L (46-116); Anion Gap 11 (5-15); Aspartate Aminotransferase 13 U/L (13-40); BUN/Creatinine Ratio 4.4 (10.0-20.0); Bilirubin, Total 0.3 mg/dL (0.2-1.0); Calcium 7.9 mg/dL (8.7-10.4); Carbon Dioxide 23 mmol/L (20-30); Chloride 97 mmol/L (98-107); Glucose 79 mg/dL (74-106); Potassium 3.9 mmol/L (3.5-5.1); Total Protein 6.4 g/dL (5.7-8.2)
[2023-04-29 03:32] LABS: Alanine Aminotransferase < 9 U/L (7-40); Blood Urea Nitrogen 29 mg/dL (9-23); Sodium 131 mmol/L (136-145)
[2023-04-29 03:38] LABS: INR 2.44 (0.9-1.15); Prothrombin Time 24.2 sec (9.3-11.8)
[2023-04-29 05:00] VITALS: BP 114/25; PULSE 79; RESP 17; TEMP 99.2; O2SAT 97
[2023-04-29] MEDS: LEVOTHYROXINE SODIUM 50 MCG TAB PO SCH (05:55)
[2023-04-29] MEDS: MIDODRINE HCL 10 MG TAB PO SCH ×2 (05:55→17:58)
[2023-04-29 08:00] VITALS: BP 104/64; PULSE 77; PULSE 81; RESP 20; TEMP 98.5; O2SAT 98
[2023-04-29] MEDS: SODIUM BICARBONATE 650 MG TAB PO SCH ×2 (09:56→22:23)
[2023-04-29] MEDS: PANTOPRAZOLE 40 MG TAB PO SCH (09:56)
[2023-04-29] MEDS: CARVEDILOL 3.125 MG TAB PO SCH ×2 (09:56→22:25)
[2023-04-29] MEDS: SEVELAMER 800 MG TAB PO SCH ×3 (09:57→17:58)
[2023-04-29] MEDS: SACUBITRIL-VALSARTAN 24mg/26mg TAB PO SCH ×2 (09:57→22:24)
[2023-04-29] MEDS: B-COMPLEX W/ C & FOLIC ACID(NEPHROVITE TAB) PO SCH (09:57)
[2023-04-29] MEDS: TICAGRELOR 90 MG TAB PO SCH ×2 (09:57→22:27)
[2023-04-29] MEDS: ALLOPURINOL 100 MG TAB PO SCH (09:57)
[2023-04-29] MEDS: ASPirin 81 mg TAB PO SCH (09:57)
[2023-04-29] MEDS: AMIODARONE HCL 200 MG TAB PO SCH ×2 (09:58→22:22)
[2023-04-29 10:15] LABS: INR 2.48 (0.9-1.15); Prothrombin Time 24.5 sec (9.3-11.8)
[2023-04-29 10:35] LABS: Partial Thromboplastin Time 72.7 SEC (24.5-34.5)
[2023-04-29 12:00] VITALS: BP 104/62; PULSE 73; RESP 20; TEMP 98.9; O2SAT 97
[2023-04-29] MEDS: SODIUM FERRIC GLUCONATE 62.5 MG/5 ML IV SCH ×2 (12:05)
[2023-04-29] MEDS ORDERED: VANCOMYCIN PER PHARMACY 0 MG IV SCH (14:45)
[2023-04-29] MEDS ORDERED: VANCOMYCIN 1GM/250ML 250 ML IV ONE (15:00)
[2023-04-29 16:00] VITALS: BP 129/60; PULSE 73; RESP 20; TEMP 98.7; O2SAT 97
[2023-04-29 16:50] LABS: INR 2.37 (0.9-1.15); Partial Thromboplastin Time 55.8 SEC (24.5-34.5); Prothrombin Time 23.5 sec (9.3-11.8)
[2023-04-29 20:00] VITALS: BP 118/64; PULSE 73; PULSE 76; RESP 16; RESP 20; TEMP 98.4; O2SAT 96
[2023-04-29] MEDS: HEPARIN DRIP/D5W 100UNITS/ML 250 ML IV SCH (20:30)
[2023-04-29 22:00] VITALS: BP 118/64; PULSE 73; RESP 16; TEMP 98.4; O2SAT 96
[2023-04-29] MEDS: ATORVASTATIN 20 MG TAB PO SCH (22:24)
[2023-04-30] VITALS (7 sets, daily range): BP systolic 98–129; BP diastolic 41–76; PULSE 71–79; RESP 16–20; TEMP 97.8–99; O2SAT 93–96
[2023-04-30] MEDS: LEVOTHYROXINE SODIUM 50 MCG TAB PO SCH (06:33)
[2023-04-30] MEDS: MIDODRINE HCL 10 MG TAB PO SCH ×2 (06:33→17:33)
[2023-04-30 06:34] LABS: Basophils # (auto) 0.1 10 ^3/uL (0-0.2); Basophils % (auto) 0.9 % (0.0-2.0); Eosinophils # (auto) 0.1 10 ^3/uL (0-0.8); Eosinophils % (auto) 0.8 % (0.0-7.0); Hematocrit 28.8 % (41.0-53.0); Hemoglobin 9.1 g/dL (13.5-17.5); Lymphocytes # (auto) 1.1 10 ^3/uL (0.4-5.4); Lymphocytes % (auto) 11.4 % (10.0-50.0); Mean Corpuscular Hemoglobin 30.8 pg (28.0-32.0); Mean Corpuscular Hgb Conc. 31.5 g/dL (32.0-36.0); Mean Corpuscular Volume 97.9 fL (80.0-100.0); Monocytes # (auto) 0.5 10 ^3/uL (0-1.3); Monocytes % (auto) 4.8 % (0.0-12.0); Neutrophils # (auto) 8.2 10 ^3/uL (1.6-8.6); Neutrophils % (auto) 82.1 % (37.0-80.0); Nucleated Red Blood Cells % 0.1 %; Red Blood Cells 2.94 10^6/uL (4.5-5.90); Red Cell Distribution Width 15.2 % (11.8-14.3); White Blood Cell 9.9 10^3/uL (4.4-10.8)
[2023-04-30] MEDS: SEVELAMER 800 MG TAB PO SCH ×3 (08:00→17:33)
[2023-04-30 08:02] LABS: Alkaline Phosphatase 216 U/L (46-116); Anion Gap 15 (5-15); Aspartate Aminotransferase 23 U/L (13-40); BUN/Creatinine Ratio 3.4 (10.0-20.0); Blood Urea Nitrogen 27 mg/dL (9-23); Carbon Dioxide 19 mmol/L (20-30); Chloride 98 mmol/L (98-107); Glucose 76 mg/dL (74-106); Potassium 5.1 mmol/L (3.5-5.1); Sodium 132 mmol/L (136-145)
[2023-04-30 08:03] LABS: Albumin 2.9 g/dL (3.2-4.8)
[2023-04-30 08:04] LABS: Bilirubin, Total 0.3 mg/dL (0.2-1.0); Total Protein 6.4 g/dL (5.7-8.2)
[2023-04-30 08:17] LABS: Alanine Aminotransferase < 9 U/L (7-40)
[2023-04-30] MEDS: B-COMPLEX W/ C & FOLIC ACID(NEPHROVITE TAB) PO SCH (09:24)
[2023-04-30] MEDS: CARVEDILOL 3.125 MG TAB PO SCH ×2 (09:24→21:59)
[2023-04-30] MEDS: TICAGRELOR 90 MG TAB PO SCH ×2 (09:24→21:57)
[2023-04-30] MEDS: SODIUM BICARBONATE 650 MG TAB PO SCH ×2 (09:24→21:43)
[2023-04-30] MEDS: SACUBITRIL-VALSARTAN 24mg/26mg TAB PO SCH ×2 (09:24→21:58)
[2023-04-30] MEDS: ASPirin 81 mg TAB PO SCH (09:24)
[2023-04-30] MEDS: AMIODARONE HCL 200 MG TAB PO SCH ×2 (09:24→21:42)
[2023-04-30] MEDS: PANTOPRAZOLE 40 MG TAB PO SCH (09:24)
[2023-04-30] MEDS: ALLOPURINOL 100 MG TAB PO SCH (09:25)
[2023-04-30] MEDS ORDERED: VANCOMYCIN 1GM/250ML 250 ML IV ONE (11:00)
[2023-04-30] MEDS: SODIUM FERRIC GLUCONATE 62.5 MG/5 ML IV SCH ×2 (12:00)
[2023-04-30] MEDS ORDERED: CEFEPIME 1GM/ 50ML 50 ML IV ONE (13:30)
[2023-04-30] MEDS: HEPARIN DRIP/D5W 100UNITS/ML 250 ML IV SCH (17:33)
[2023-04-30 20:12] LABS: INR 1.71 (0.9-1.15); Partial Thromboplastin Time 39.3 SEC (24.5-34.5); Prothrombin Time 17.3 sec (9.3-11.8)
[2023-04-30] MEDS ORDERED: EPOETIN ALFA-EPBX 4,000 UNIT/ML VIAL SC ONE (21:00)
[2023-04-30] MEDS: ATORVASTATIN 20 MG TAB PO SCH (21:44)
[2023-05-01 03:04] LABS: INR 1.79 (0.9-1.15); Partial Thromboplastin Time 51.5 SEC (24.5-34.5); Prothrombin Time 18.1 sec (9.3-11.8)
[2023-05-01 05:00] VITALS: BP 132/75; PULSE 75; RESP 16; TEMP 99.1; O2SAT 90
[2023-05-01] MEDS: LEVOTHYROXINE SODIUM 50 MCG TAB PO SCH (06:23)
[2023-05-01] MEDS: MIDODRINE HCL 10 MG TAB PO SCH ×2 (06:23→18:40)
[2023-05-01 08:00] VITALS: BP 121/53; PULSE 79; RESP 16; TEMP 98.7; O2SAT 96
[2023-05-01 09:14] VITALS: BP 167/52; PULSE 78; RESP 18; TEMP 97.6; O2SAT 97
[2023-05-01] MEDS: ASPirin 81 mg TAB PO SCH (09:29)
[2023-05-01] MEDS: SACUBITRIL-VALSARTAN 24mg/26mg TAB PO SCH ×2 (09:29→23:26)
[2023-05-01] MEDS: AMIODARONE HCL 200 MG TAB PO SCH ×2 (09:30→23:26)
[2023-05-01] MEDS: B-COMPLEX W/ C & FOLIC ACID(NEPHROVITE TAB) PO SCH (09:30)
[2023-05-01] MEDS: ALLOPURINOL 100 MG TAB PO SCH (09:31)
[2023-05-01] MEDS: SODIUM BICARBONATE 650 MG TAB PO SCH ×2 (09:33→23:23)
[2023-05-01] MEDS: PANTOPRAZOLE 40 MG TAB PO SCH (09:33)
[2023-05-01] MEDS: CARVEDILOL 3.125 MG TAB PO SCH ×2 (09:33→23:26)
[2023-05-01] MEDS: TICAGRELOR 90 MG TAB PO SCH ×2 (09:36→23:26)
[2023-05-01] MEDS: SEVELAMER 800 MG TAB PO SCH ×3 (10:28→18:39)
[2023-05-01] MEDS ORDERED: SODIUM CHL 0.9% 1000 ML BAG XX ONE (12:45)
[2023-05-01] MEDS: CEFEPIME 1GM/ 50ML 50 ML IV SCH (12:50)
[2023-05-01 13:14] VITALS: BP 148/70; PULSE 73; RESP 18; TEMP 97.5; O2SAT 94
[2023-05-01 14:39] LABS: Basophils # (auto) 0.1 10 ^3/uL (0-0.2); Eosinophils # (auto) 0 10 ^3/uL (0-0.8); Eosinophils % (auto) 0.3 % (0.0-7.0); Hemoglobin 8.4 g/dL (13.5-17.5); Monocytes # (auto) 0.7 10 ^3/uL (0-1.3); Monocytes % (auto) 5.1 % (0.0-12.0)
[2023-05-01 14:41] LABS: Hematocrit 26.4 % (41.0-53.0); Lymphocytes # (auto) 0.9 10 ^3/uL (0.4-5.4); Lymphocytes % (auto) 6.7 % (10.0-50.0); Mean Corpuscular Hgb Conc. 31.9 g/dL (32.0-36.0); Mean Corpuscular Volume 93.8 fL (80.0-100.0); Neutrophils # (auto) 11.2 10 ^3/uL (1.6-8.6); Neutrophils % (auto) 86.9 % (37.0-80.0); Red Blood Cells 2.82 10^6/uL (4.5-5.90); Red Cell Distribution Width 14.8 % (11.8-14.3); White Blood Cell 12.9 10^3/uL (4.4-10.8)
[2023-05-01 14:57] LABS: Alkaline Phosphatase 194 U/L (46-116); Anion Gap 10 (5-15); Aspartate Aminotransferase 10 U/L (13-40); BUN/Creatinine Ratio 3.9 (10.0-20.0); Blood Urea Nitrogen 26 mg/dL (9-23); Carbon Dioxide 27 mmol/L (20-30); Chloride 97 mmol/L (98-107); Glucose 93 mg/dL (74-106); Potassium 3.8 mmol/L (3.5-5.1); Sodium 134 mmol/L (136-145)
[2023-05-01 14:58] LABS: INR 1.97 (0.9-1.15); Partial Thromboplastin Time 58.1 SEC (24.5-34.5); Prothrombin Time 19.8 sec (9.3-11.8)
[2023-05-01 15:00] LABS: Bilirubin, Total 0.4 mg/dL (0.2-1.0); Total Protein 6.3 g/dL (5.7-8.2)
[2023-05-01 15:07] LABS: Alanine Aminotransferase < 9 U/L (7-40)
[2023-05-01] MEDS ORDERED: SODIUM FERR GLUC 62.5MG/5ML 125 MG in SODIUM CHL 0.9% 100 ML IV SCH (15:08)
[2023-05-01] MEDS: SODIUM FERR GLUC 125 MG in NS 100 ML IV SCH (16:58)
[2023-05-01 20:00] VITALS: BP 126/75; PULSE 82; PULSE 85; RESP 16; TEMP 97.6; O2SAT 95
[2023-05-01] MEDS: HEPARIN DRIP/D5W 100UNITS/ML 250 ML IV SCH ×2 (20:30→23:30)
[2023-05-01 22:00] VITALS: BP 126/75; PULSE 85; RESP 16; TEMP 97.6; O2SAT 94
[2023-05-01 22:44] LABS: INR 1.92 (0.9-1.15); Prothrombin Time 19.3 sec (9.3-11.8)
[2023-05-01 22:49] LABS: Partial Thromboplastin Time 76.8 SEC (24.5-34.5)
[2023-05-01] MEDS: ATORVASTATIN 20 MG TAB PO SCH (23:22)
[2023-05-02] VITALS (10 sets, daily range): BP systolic 111–141; BP diastolic 57–69; PULSE 68–75; RESP 14–20; TEMP 97.5–98.7; O2SAT 90–98
[2023-05-02 06:46] LABS: Basophils # (auto) 0.1 10 ^3/uL (0-0.2); Eosinophils # (auto) 0.1 10 ^3/uL (0-0.8); Eosinophils % (auto) 0.6 % (0.0-7.0); Hematocrit 23.6 % (41.0-53.0); Hemoglobin 7.9 g/dL (13.5-17.5); Lymphocytes # (auto) 0.9 10 ^3/uL (0.4-5.4); Nucleated Red Blood Cells % 0.1 %; Red Blood Cells 2.53 10^6/uL (4.5-5.90)
[2023-05-02 06:50] LABS: Basophils % (auto) 0.8 % (0.0-2.0); Lymphocytes % (auto) 8.8 % (10.0-50.0); Mean Corpuscular Hemoglobin 31.3 pg (28.0-32.0); Mean Corpuscular Hgb Conc. 33.5 g/dL (32.0-36.0); Mean Corpuscular Volume 93.4 fL (80.0-100.0); Monocytes # (auto) 0.6 10 ^3/uL (0-1.3); Monocytes % (auto) 6.1 % (0.0-12.0); Neutrophils # (auto) 8.5 10 ^3/uL (1.6-8.6); Neutrophils % (auto) 83.7 % (37.0-80.0); Red Cell Distribution Width 14.7 % (11.8-14.3); White Blood Cell 10.2 10^3/uL (4.4-10.8)
[2023-05-02] MEDS: MIDODRINE HCL 10 MG TAB PO SCH ×2 (06:55→17:30)
[2023-05-02] MEDS: LEVOTHYROXINE SODIUM 50 MCG TAB PO SCH (06:56)
[2023-05-02 07:07] LABS: Albumin 2.8 g/dL (3.2-4.8); Alkaline Phosphatase 182 U/L (46-116); Carbon Dioxide 27 mmol/L (20-30); Chloride 99 mmol/L (98-107); Glucose 85 mg/dL (74-106)
[2023-05-02 07:08] LABS: Anion Gap 10 (5-15); Aspartate Aminotransferase 10 U/L (13-40); BUN/Creatinine Ratio 3.9 (10.0-20.0); Blood Urea Nitrogen 20 mg/dL (9-23); Potassium 3.6 mmol/L (3.5-5.1); Sodium 136 mmol/L (136-145); Total Protein 6.2 g/dL (5.7-8.2)
[2023-05-02 07:09] LABS: INR 1.81 (0.9-1.15); Prothrombin Time 18.3 sec (9.3-11.8)
[2023-05-02 07:14] LABS: Alanine Aminotransferase < 9 U/L (7-40)
[2023-05-02 07:23] LABS: Bilirubin, Total 0.5 mg/dL (0.2-1.0)
[2023-05-02 07:29] LABS: Partial Thromboplastin Time 83.3 SEC (24.5-34.5)
[2023-05-02] MEDS: SEVELAMER 800 MG TAB PO SCH ×3 (08:00→17:31)
[2023-05-02] MEDS: CARVEDILOL 3.125 MG TAB PO SCH ×2 (10:00→22:28)
[2023-05-02] MEDS: AMIODARONE HCL 200 MG TAB PO SCH ×2 (10:00→22:30)
[2023-05-02] MEDS: SACUBITRIL-VALSARTAN 24mg/26mg TAB PO SCH ×2 (10:00→22:27)
[2023-05-02] MEDS: TICAGRELOR 90 MG TAB PO SCH ×2 (10:00→22:27)
[2023-05-02] MEDS: SODIUM BICARBONATE 650 MG TAB PO SCH ×2 (10:00→22:24)
[2023-05-02] MEDS: SODIUM FERR GLUC 125 MG in NS 100 ML IV SCH (12:00)
[2023-05-02] MEDS ORDERED: LIDOCAINE 2%HCL (LOCAL ANESTH.) INJ 20ML MDV ONE (12:39)
[2023-05-02] MEDS ORDERED: fentaNYL CITRATE 100 MCG/2 ML VL ONE (12:39)
[2023-05-02] MEDS ORDERED: HEPARIN SODIUM (PORCINE) 5000 UNITS/ML 1ML VIAL ONE (12:39)
[2023-05-02] MEDS ORDERED: MIDAZOLAM HCL 2MG/2ML 2ml VIAL (1mg/ml) ONE (12:39)
[2023-05-02] MEDS ORDERED: ceFAZolin 1GM/50ML 50 ML IV ONE (13:23)
[2023-05-02] MEDS: CEFEPIME 1GM/ 50ML 50 ML IV SCH (15:33)
[2023-05-02] MEDS: B-COMPLEX W/ C & FOLIC ACID(NEPHROVITE TAB) PO SCH (15:33)
[2023-05-02] MEDS: PANTOPRAZOLE 40 MG TAB PO SCH (15:33)
[2023-05-02] MEDS: ASPirin 81 mg TAB PO SCH (15:33)
[2023-05-02] MEDS: ALLOPURINOL 100 MG TAB PO SCH (15:33)
[2023-05-02 21:54] LABS: Basophils # (auto) 0.1 10 ^3/uL (0-0.2); Basophils % (auto) 1.1 % (0.0-2.0); Eosinophils # (auto) 0.1 10 ^3/uL (0-0.8); Eosinophils % (auto) 0.6 % (0.0-7.0); Hematocrit 25.1 % (41.0-53.0); Hemoglobin 7.9 g/dL (13.5-17.5); Lymphocytes # (auto) 1.2 10 ^3/uL (0.4-5.4); Lymphocytes % (auto) 12.5 % (10.0-50.0); Mean Corpuscular Hemoglobin 30.3 pg (28.0-32.0); Mean Corpuscular Hgb Conc. 31.6 g/dL (32.0-36.0); Mean Corpuscular Volume 96.1 fL (80.0-100.0); Monocytes # (auto) 0.7 10 ^3/uL (0-1.3); Monocytes % (auto) 7.2 % (0.0-12.0); Neutrophils # (auto) 7.5 10 ^3/uL (1.6-8.6); Neutrophils % (auto) 78.6 % (37.0-80.0); Nucleated Red Blood Cells % 0.1 %; Red Blood Cells 2.61 10^6/uL (4.5-5.90); Red Cell Distribution Width 15.4 % (11.8-14.3); White Blood Cell 9.6 10^3/uL (4.4-10.8)
[2023-05-02] MEDS: ATORVASTATIN 20 MG TAB PO SCH (22:33)
[2023-05-02] MEDS: HEPARIN DRIP/D5W 100UNITS/ML 250 ML IV SCH (23:30)
[2023-05-03] VITALS (7 sets, daily range): BP systolic 113–137; BP diastolic 23–59; PULSE 68–74; RESP 18–20; TEMP 97.6–98.2; O2SAT 96–98
[2023-05-03] MEDS: MIDODRINE HCL 10 MG TAB PO SCH ×2 (06:28→17:45)
[2023-05-03] MEDS: LEVOTHYROXINE SODIUM 50 MCG TAB PO SCH (06:28)
[2023-05-03] MEDS: ASPirin 81 mg TAB PO SCH (09:33)
[2023-05-03] MEDS: ALLOPURINOL 100 MG TAB PO SCH (09:33)
[2023-05-03] MEDS: PANTOPRAZOLE 40 MG TAB PO SCH (09:33)
[2023-05-03] MEDS: TICAGRELOR 90 MG TAB PO SCH ×2 (09:34→22:02)
[2023-05-03] MEDS: SEVELAMER 800 MG TAB PO SCH ×3 (09:34→17:39)
[2023-05-03] MEDS: AMIODARONE HCL 200 MG TAB PO SCH ×2 (09:36→22:03)
[2023-05-03] MEDS: B-COMPLEX W/ C & FOLIC ACID(NEPHROVITE TAB) PO SCH (09:36)
[2023-05-03] MEDS: SODIUM BICARBONATE 650 MG TAB PO SCH ×2 (09:37→22:03)
[2023-05-03] MEDS: SACUBITRIL-VALSARTAN 24mg/26mg TAB PO SCH ×2 (09:38→22:03)
[2023-05-03] MEDS: CARVEDILOL 3.125 MG TAB PO SCH ×2 (09:39→22:15)
[2023-05-03] MEDS: CEFEPIME 1GM/ 50ML 50 ML IV SCH (09:40)
[2023-05-03 14:47] LABS: Basophils # (auto) 0.1 10 ^3/uL (0-0.2); Eosinophils # (auto) 0.1 10 ^3/uL (0-0.8); Hemoglobin 7.2 g/dL (13.5-17.5); Neutrophils # (auto) 8.2 10 ^3/uL (1.6-8.6); White Blood Cell 9.9 10^3/uL (4.4-10.8)
[2023-05-03 14:49] LABS: Basophils % (auto) 1.2 % (0.0-2.0); Eosinophils % (auto) 0.9 % (0.0-7.0); Hematocrit 22.4 % (41.0-53.0); Lymphocytes % (auto) 9.7 % (10.0-50.0); Mean Corpuscular Hemoglobin 30.3 pg (28.0-32.0); Mean Corpuscular Hgb Conc. 32.3 g/dL (32.0-36.0); Mean Corpuscular Volume 93.7 fL (80.0-100.0); Monocytes # (auto) 0.5 10 ^3/uL (0-1.3); Monocytes % (auto) 5.2 % (0.0-12.0); Nucleated Red Blood Cells % 0.1 %; Red Blood Cells 2.39 10^6/uL (4.5-5.90)
[2023-05-03 15:05] LABS: Albumin 2.8 g/dL (3.2-4.8); Alkaline Phosphatase 164 U/L (46-116); Anion Gap 10 (5-15); Aspartate Aminotransferase 19 U/L (13-40); BUN/Creatinine Ratio 4.5 (10.0-20.0); Calcium 7.6 mg/dL (8.5-10.1); Carbon Dioxide 27 mmol/L (20-30); Chloride 99 mmol/L (98-107); Glucose 100 mg/dL (74-106); Potassium 3.8 mmol/L (3.5-5.1); Sodium 136 mmol/L (136-145)
[2023-05-03 15:06] LABS: Bilirubin, Total 0.3 mg/dL (0.2-1.0); Total Protein 6.2 g/dL (5.7-8.2)
[2023-05-03 15:19] LABS: Alanine Aminotransferase < 9 U/L (7-40); Blood Urea Nitrogen 30 mg/dL (9-23)
[2023-05-03] MEDS: ceFAZolin 1GM/50ML 50 ML IV SCH (15:59)
[2023-05-03] MEDS: HEPARIN DRIP/D5W 100UNITS/ML 250 ML IV SCH (21:59)
[2023-05-03] MEDS: ATORVASTATIN 20 MG TAB PO SCH (22:03)
[2023-05-03] MEDS: HYDROcodone-ACET 5/325MG TAB PO PRN (22:04)
[2023-05-04 05:00] VITALS: BP 115/55; PULSE 63; RESP 16; TEMP 97.8; O2SAT 100
[2023-05-04] MEDS: MIDODRINE HCL 10 MG TAB PO SCH ×2 (05:44→16:47)
[2023-05-04] MEDS: LEVOTHYROXINE SODIUM 50 MCG TAB PO SCH (06:27)
[2023-05-04] MEDS ORDERED: SODIUM CHL 0.9% 1000 ML BAG XX ONE (07:00)
[2023-05-04 08:00] VITALS: PULSE 66
[2023-05-04] MEDS: SEVELAMER 800 MG TAB PO SCH ×3 (08:00→16:47)
[2023-05-04] MEDS ORDERED: ALBUMIN 25% 100 ML IV ONE (08:15)
[2023-05-04 09:04] VITALS: BP 123/66; PULSE 61; RESP 18; TEMP 97.3; O2SAT 100
[2023-05-04 11:10] LABS: Hemoglobin 7.2 g/dL (13.5-17.5); Lymphocytes # (auto) 1.1 10 ^3/uL (0.4-5.4); Monocytes # (auto) 0.4 10 ^3/uL (0-1.3); Red Cell Distribution Width 15.1 % (11.8-14.3)
[2023-05-04 11:12] LABS: Basophils # (auto) 0.1 10 ^3/uL (0-0.2); Basophils % (auto) 1.3 % (0.0-2.0); Eosinophils # (auto) 0.2 10 ^3/uL (0-0.8); Eosinophils % (auto) 1.9 % (0.0-7.0); Hematocrit 21.9 % (41.0-53.0); Lymphocytes % (auto) 13.1 % (10.0-50.0); Mean Corpuscular Hemoglobin 31.2 pg (28.0-32.0); Mean Corpuscular Hgb Conc. 33.1 g/dL (32.0-36.0); Mean Corpuscular Volume 94.3 fL (80.0-100.0); Monocytes % (auto) 5.2 % (0.0-12.0); Neutrophils # (auto) 6.3 10 ^3/uL (1.6-8.6); Neutrophils % (auto) 78.5 % (37.0-80.0); Red Blood Cells 2.32 10^6/uL (4.5-5.90); White Blood Cell 8.1 10^3/uL (4.4-10.8)
[2023-05-04 11:33] LABS: Alkaline Phosphatase 158 U/L (46-116); Anion Gap 8 (5-15); Calcium 7.6 mg/dL (8.5-10.1); Carbon Dioxide 29 mmol/L (20-30); Chloride 99 mmol/L (98-107); Potassium 3.9 mmol/L (3.5-5.1); Sodium 136 mmol/L (136-145)
[2023-05-04 11:34] LABS: BUN/Creatinine Ratio 4.6 (10.0-20.0); Blood Urea Nitrogen 31 mg/dL (9-23); Glucose 86 mg/dL (74-106)
[2023-05-04 11:36] LABS: Albumin 2.8 g/dL (3.2-4.8); Aspartate Aminotransferase 11 U/L (13-40)
[2023-05-04 11:37] LABS: Bilirubin, Total 0.3 mg/dL (0.2-1.0); Total Protein 6.3 g/dL (5.7-8.2)
[2023-05-04 11:45] LABS: Alanine Aminotransferase < 9 U/L (7-40)
[2023-05-04 13:00] VITALS: BP 140/65; PULSE 69; RESP 18; TEMP 98.9; O2SAT 90
[2023-05-04] MEDS ORDERED: CLOP75TA28 PO (13:44)
[2023-05-04] MEDS ORDERED: AMIO200T33 PO (13:44)
[2023-05-04] MEDS ORDERED: SACU1TAB PO (13:44)
[2023-05-04] MEDS ORDERED: LEV50T PO (13:44)
[2023-05-04] MEDS ORDERED: APIX2.5T PO (13:44)
[2023-05-04] MEDS ORDERED: ATOR20TA50 PO (13:44)
[2023-05-04] MEDS ORDERED: SODI650T PO (13:44)
[2023-05-04] MEDS ORDERED: MID10T PO (13:44)
[2023-05-04] MEDS: B-COMPLEX W/ C & FOLIC ACID(NEPHROVITE TAB) PO SCH (14:57)
[2023-05-04] MEDS: AMIODARONE HCL 200 MG TAB PO SCH (14:57)
[2023-05-04] MEDS: SODIUM BICARBONATE 650 MG TAB PO SCH (14:57)
[2023-05-04] MEDS: PANTOPRAZOLE 40 MG TAB PO SCH (14:57)
[2023-05-04] MEDS: CARVEDILOL 3.125 MG TAB PO SCH (14:58)
[2023-05-04] MEDS: ALLOPURINOL 100 MG TAB PO SCH (14:58)
[2023-05-04] MEDS: SACUBITRIL-VALSARTAN 24mg/26mg TAB PO SCH (14:58)
[2023-05-04] MEDS ORDERED: IRON SUCROSE COMPLEX 200 MG in SODIUM CHL 0.9% 100 ML IV SCH (15:00)
[2023-05-04] MEDS: ceFAZolin 1GM/50ML 50 ML IV SCH (15:55)
[2023-05-04] MEDS ORDERED: SODIUM FERR GLUC 125 MG in NS 100 ML IV ONE (16:30)
[2023-05-04 16:50] VITALS: BP 94/30; PULSE 82; RESP 18; TEMP 98.9; O2SAT 90
[2023-05-04] MEDS ORDERED: EPOETIN ALFA-EPBX 10,000 UNIT/1ML VIAL SC ONE (21:00)
[2023-05-05] MEDS ORDERED: IRON SUCROSE COMPLEX 200 MG in SODIUM CHL 0.9% 100 ML IV SCH (12:00)
[2023-05-05] MEDS ORDERED: SODIUM FERR GLUC 125 MG in NS 100 ML IV SCH (12:00)
== END 2023-05-04 18:14 | disposition home health service (06) | DRG 291 ==
LOC: TELE-WESTW 23:29 → UNDOADMIN 23:29 → TELE-WESTW 04-27 00:44
PROVIDERS: ADMIT Nurse Practitioner; ATTEND Internal Medicine
PROC: 02H633Z Insertion of Infusion Device into Right Atrium, Percutaneous Approach (ICD-10-PCS; 2023-04-27)
PROC: B5181ZA Fluoroscopy of Superior Vena Cava using Low Osmolar Contrast, Guidance (ICD-10-PCS; 2023-04-27)
PROC: 5A1D70Z Performance of Urinary Filtration, Intermittent, Less than 6 Hours Per Day (ICD-10-PCS; principal; 2023-04-28)
PROC: 5A1D70Z Performance of Urinary Filtration, Intermittent, Less than 6 Hours Per Day (ICD-10-PCS; 2023-04-30)
PROC: 5A1D70Z Performance of Urinary Filtration, Intermittent, Less than 6 Hours Per Day (ICD-10-PCS; 2023-05-01)
PROC: 02PAX3Z Removal of Infusion Device from Heart, External Approach (ICD-10-PCS; 2023-05-02)
PROC: 02HV33Z Insertion of Infusion Device into Superior Vena Cava, Percutaneous Approach (ICD-10-PCS; 2023-05-02)
PROC: 0JH63XZ Insertion of Tunneled Vascular Access Device into Chest Subcutaneous Tissue and Fascia, Percutaneous Approach (ICD-10-PCS; 2023-05-02)
PROC: B5181ZA Fluoroscopy of Superior Vena Cava using Low Osmolar Contrast, Guidance (ICD-10-PCS; 2023-05-02)
PROC: 5A1D70Z Performance of Urinary Filtration, Intermittent, Less than 6 Hours Per Day (ICD-10-PCS; 2023-05-04)
DX: I13.2 Hypertensive heart and chronic kidney disease with heart failure and with stage 5 chronic kidney disease, or end stage renal disease (principal); I50.43 Acute on chronic combined systolic (congestive) and diastolic (congestive) heart failure; N18.6 End stage renal disease; E87.1 Hypo-osmolality and hyponatremia; N39.0 Urinary tract infection, site not specified; I69.351 Hemiplegia and hemiparesis following cerebral infarction affecting right dominant side; I25.10 Atherosclerotic heart disease of native coronary artery without angina pectoris; D63.1 Anemia in chronic kidney disease; I48.0 Paroxysmal atrial fibrillation; I25.5 Ischemic cardiomyopathy; D69.6 Thrombocytopenia, unspecified; I95.9 Hypotension, unspecified; G40.909 Epilepsy, unspecified, not intractable, without status epilepticus; E78.5 Hyperlipidemia, unspecified; E88.09 Other disorders of plasma-protein metabolism, not elsewhere classified; B96.89 Other specified bacterial agents as the cause of diseases classified elsewhere; Z95.5 Presence of coronary angioplasty implant and graft; Z99.2 Dependence on renal dialysis; Z82.3 Family history of stroke; Z87.820 Personal history of traumatic brain injury; Z79.01 Long term (current) use of anticoagulants; Z79.02 Long term (current) use of antithrombotics/antiplatelets; Z79.899 Other long term (current) drug therapy; I25.2 Old myocardial infarction
CPT/HCPCS: 36415; 36558; 36589; 71045; 76937; 77001; 80053; 80202; 82306; 83735; 83880; 83970; 84100; 85025; 85610; 85730; 86803; 87040; 87077; 87081; 87086; 87186; 87340; 90935; 93306; 99152; C1894; G0378; J0690; J1642; J1756; J2250; P9047

== ENCOUNTER 2023-07-24 19:29 | Inpatient (IN) | payer MEDICARE, OTHER ==
[~2023-07-24] VITALS: Ht 162.6 cm; Wt 66.2 kg
[~2023-07-24 19:29] MED LIST changes: +AMIO200T33 PO; +APIX2.5T PO; -ASPI-325 PO; +ATOR20TA50 PO; +CLOP75TA28 PO; +LEV50T PO; +MID10T PO; -SIMV20TA20 PO; +SODI650T PO
[2023-07-24 21:14] LABS: Chloride 102 mmol/L (98-107); Potassium 3.3 mmol/L (3.5-5.1); Sodium 135 mmol/L (136-145)
[2023-07-24 21:15] LABS: Anion Gap 11 (5-15); Calcium 8.2 mg/dL (8.5-10.1); Carbon Dioxide 22 mmol/L (20-30)
[2023-07-24 21:20] LABS: BUN/Creatinine Ratio 3.7 (10.0-20.0); Blood Urea Nitrogen 18 mg/dL (9-23); Glucose 66 mg/dL (74-106)
[2023-07-24 21:22] LABS: Basophils # (auto) 0.1 10 ^3/uL (0-0.2); Eosinophils # (auto) 0.1 10 ^3/uL (0-0.8); Eosinophils % (auto) 1.2 % (0.0-7.0); Hemoglobin 15.4 g/dL (13.5-17.5); Monocytes # (auto) 0.5 10 ^3/uL (0-1.3); White Blood Cell 4.6 10^3/uL (4.4-10.8)
[2023-07-24 21:24] LABS: Basophils % (auto) 1.1 % (0.0-2.0); Hematocrit 49.4 % (41.0-53.0); Lymphocytes # (auto) 1.2 10 ^3/uL (0.4-5.4); Lymphocytes % (auto) 25.1 % (10.0-50.0); Mean Corpuscular Hemoglobin 32.3 pg (28.0-32.0); Mean Corpuscular Hgb Conc. 31.2 g/dL (32.0-36.0); Mean Corpuscular Volume 103.3 fL (80.0-100.0); Neutrophils # (auto) 2.9 10 ^3/uL (1.6-8.6); Neutrophils % (auto) 61.6 % (37.0-80.0); Nucleated Red Blood Cells % 0.5 %; Red Blood Cells 4.78 10^6/uL (4.5-5.90)
[2023-07-24 21:36] LABS: Red Cell Distribution Width 21.4 % (11.8-14.3)
[2023-07-24 21:37] LABS: Anisocytosis Slight; Giant Platelets Few; Platelet Estimate Decreased
[2023-07-24 21:38] LABS: Macrocytosis Slight; Target Cell FEW
[2023-07-24] MEDS ORDERED: ACETAMINOPHEN 325 MG TAB PO PRN (22:45)
[2023-07-24] MEDS ORDERED: DOCUSATE SOD 100 MG CAP PO PRN (22:45)
[2023-07-24] MEDS ORDERED: MORPHINE SULFATE INJ 2 MG/ml SYRG IV PRN (22:45)
[2023-07-24] MEDS ORDERED: NITROGLYCERIN 0.4 MG SL TAB SL PRN (22:45)
[2023-07-24] MEDS ORDERED: VANCOMYCIN PER PHARMACY 0 MG IV SCH (22:45)
[2023-07-25 01:29] LABS: Base Excess 1.5 mmol/L (-2.0-2.0)
[2023-07-25] MEDS: DEXTROSE 50% SYRINGE 50 ML IV ONE (02:09)
[2023-07-25] MEDS: DEXTROSE (50%) 50ML SYRG IV ONE (02:10)
[2023-07-25] MEDS: CLINDAMYCIN 600MG IV 50 ML IV ONE (02:21)
[2023-07-25] MEDS: VANCOMYCIN 1GM/200ML 200 ML IV SCH (02:21)
[2023-07-25 02:47] VITALS: PULSE 72; RESP 25; O2SAT 96
[2023-07-25 05:17] LABS: Basophils # (auto) 0.1 10 ^3/uL (0-0.2); Basophils % (auto) 2.3 % (0.0-2.0); Eosinophils # (auto) 0.1 10 ^3/uL (0-0.8); Eosinophils % (auto) 2.4 % (0.0-7.0); Hemoglobin 11.8 g/dL (13.5-17.5); Lymphocytes % (auto) 21.5 % (10.0-50.0); Mean Corpuscular Hemoglobin 32.5 pg (28.0-32.0); Mean Corpuscular Hgb Conc. 32.9 g/dL (32.0-36.0); Monocytes # (auto) 0.3 10 ^3/uL (0-1.3); Monocytes % (auto) 7.5 % (0.0-12.0); Neutrophils % (auto) 66.3 % (37.0-80.0); Nucleated Red Blood Cells % 0.2 %; Red Blood Cells 3.64 10^6/uL (4.5-5.90); White Blood Cell 4.5 10^3/uL (4.4-10.8)
[2023-07-25 05:19] LABS: Red Cell Distribution Width 20.4 % (11.8-14.3)
[2023-07-25 05:38] LABS: Albumin 2.6 g/dL (3.2-4.8); Alkaline Phosphatase 119 U/L (46-116); Anion Gap 9 (5-15); Aspartate Aminotransferase 26 U/L (13-40); BUN/Creatinine Ratio 5.4 (10.0-20.0); Bilirubin, Total 0.8 mg/dL (0.2-1.0); Blood Urea Nitrogen 27 mg/dL (9-23); Calcium 7.3 mg/dL (8.7-10.4); Carbon Dioxide 24 mmol/L (20-30); Chloride 104 mmol/L (98-107); Glucose 64 mg/dL (74-106); Potassium 2.8 mmol/L (3.5-5.1); Sodium 137 mmol/L (136-145); Total Protein 6.4 g/dL (5.7-8.2)
[2023-07-25 05:44] LABS: Alanine Aminotransferase < 9 U/L (7-40)
[2023-07-25 07:30] VITALS: PULSE 67; RESP 19; O2SAT 100
[2023-07-25] MEDS: cefTRIAXone 1GM/50ML D5W 50 ML IV SCH (09:10)
[2023-07-25] MEDS: POTASSIUM CHL 20MEQ/100ML 100 ML IV ONE ×2 (11:15→11:17)
[2023-07-25] MEDS: POTASSIUM EFFERVESENT TAB 25 MEQ PO ONE (11:15)
[2023-07-25] MEDS: ALBUMIN 25% 50 ML IV SCH (11:27)
[2023-07-25] MEDS: NOREPINEPHRINE 8 MG/250ML KIT 250 ML IV PRN (11:30)
[2023-07-25 14:38] LABS: Basophils # (auto) 0.1 10 ^3/uL (0-0.2); Basophils % (auto) 1.4 % (0.0-2.0); Eosinophils # (auto) 0.1 10 ^3/uL (0-0.8); Eosinophils % (auto) 2.1 % (0.0-7.0); Hematocrit 37.8 % (41.0-53.0); Hemoglobin 12.1 g/dL (13.5-17.5); Lymphocytes # (auto) 1.3 10 ^3/uL (0.4-5.4); Lymphocytes % (auto) 20.1 % (10.0-50.0); Mean Corpuscular Hemoglobin 32.3 pg (28.0-32.0); Mean Corpuscular Hgb Conc. 32.1 g/dL (32.0-36.0); Mean Corpuscular Volume 100.5 fL (80.0-100.0); Monocytes # (auto) 0.4 10 ^3/uL (0-1.3); Monocytes % (auto) 6.7 % (0.0-12.0); Neutrophils # (auto) 4.3 10 ^3/uL (1.6-8.6); Neutrophils % (auto) 69.7 % (37.0-80.0); Nucleated Red Blood Cells % 0.2 %; Red Blood Cells 3.76 10^6/uL (4.5-5.90); White Blood Cell 6.2 10^3/uL (4.4-10.8)
[2023-07-25 14:51] LABS: Calcium 7.7 mg/dL (8.5-10.1); Chloride 104 mmol/L (98-107); Potassium 3.2 mmol/L (3.5-5.1); Sodium 136 mmol/L (136-145)
[2023-07-25 14:52] LABS: Anion Gap 9 (5-15); Carbon Dioxide 23 mmol/L (20-30)
[2023-07-25 14:57] LABS: BUN/Creatinine Ratio 4.2 (10.0-20.0); Blood Urea Nitrogen 22 mg/dL (9-23); Glucose 101 mg/dL (74-106)
[2023-07-25 15:36] LABS: Lactic Acid w/Reflex 2.3 mmol/L (0.4-2.0)
[2023-07-25] MEDS ORDERED: ISOS1TAB28 PO (16:09)
[2023-07-25] MEDS ORDERED: VANCOMYCIN PER PHARMACY 0 MG IV SCH (17:15)
[2023-07-25] MEDS: POTASSIUM CHL 20 Meq TABLET PO ONE (17:51)
[2023-07-25 19:20] VITALS: PULSE 68; RESP 22; O2SAT 100
[2023-07-26 00:03] LABS: COVID19 ANTIGEN SOFIA FIA NEGATIVE (NEGATIVE); Rapid Influenza A Negative (Negative); Rapid Influenza B Negative (Negative)
[2023-07-26 07:30] VITALS: PULSE 98; O2SAT 96
[2023-07-26] MEDS: PANTOPRAZOLE 40 MG TAB PO SCH (10:00)
[2023-07-26] MEDS: SODIUM CHL 0.9% 1000 ML BAG XX ONE (10:15)
[2023-07-26 12:23] LABS: Alanine Aminotransferase 10 U/L (7-40); Alkaline Phosphatase 144 U/L (46-116); Anion Gap 14 (5-15); Aspartate Aminotransferase 32 U/L (13-40); Bilirubin, Total 0.7 mg/dL (0.2-1.0); Blood Urea Nitrogen 23 mg/dL (9-23); Carbon Dioxide 17 mmol/L (20-30); Chloride 107 mmol/L (98-107); Glucose 90 mg/dL (74-106); Potassium 3.8 mmol/L (3.5-5.1); Sodium 138 mmol/L (136-145)
[2023-07-26] MEDS: VANCOMYCIN 1GM/200ML 200 ML IV ONE (16:58)
[2023-07-26] MEDS: MIDODRINE HCL 10 MG TAB PO SCH (18:00)
[2023-07-26] MEDS: TAMSULOSIN HYDROCHLORIDE 0.4 MG CAP PO SCH (18:00)
[2023-07-26] MEDS: CARVEDILOL 3.125 MG TAB PO SCH (22:00)
[2023-07-26] MEDS: SACUBITRIL-VALSARTAN 24mg/26mg TAB PO SCH (22:22)
[2023-07-26] MEDS: AMIODARONE HCL 200 MG TAB PO SCH (22:23)
[2023-07-26] MEDS: ATORVASTATIN 20 MG TAB PO SCH (22:23)
[2023-07-26] MEDS: APIXABAN 2.5 MG TAB PO SCH (22:23)
[2023-07-26 23:08] VITALS: PULSE 96; RESP 18; O2SAT 100
[2023-07-26 23:40] VITALS: BP 97/62; PULSE 86; RESP 22; TEMP 100.9; O2SAT 98
[2023-07-27] VITALS (14 sets, daily range): BP systolic 93–108; BP diastolic 49–78; PULSE 72–89; RESP 18–26; TEMP 97.5–100.9; O2SAT 86–98
[2023-07-27] MEDS: ALBUTEROL SULF 2.5 MG/0.5ML(0.5%) NEB SOLN NEB PRN (01:13)
[2023-07-27] MEDS: IPRATROPIUM BROM 0.5 MG/2.5ML INH SOL NEB PRN (01:13)
[2023-07-27] MEDS: LEVOTHYROXINE SODIUM 50 MCG TAB PO SCH (06:28)
[2023-07-27] MEDS: CLOPIDOGREL BISULFATE 75 MG TAB PO SCH (08:25)
[2023-07-27] MEDS: ALLOPURINOL 100 MG TAB PO SCH (08:25)
[2023-07-27] MEDS: PANTOPRAZOLE 40 MG TAB PO SCH (10:00)
[2023-07-28] VITALS (11 sets, daily range): BP systolic 66–83; BP diastolic 41–55; PULSE 60–82; RESP 16–22; TEMP 97.3–98.6; O2SAT 91–100
[2023-07-28] MEDS: ONDANSETRON HCL 4 MG/2 ML VIAL IV PRN (03:45)
[2023-07-29] VITALS (11 sets, daily range): BP systolic 72–85; BP diastolic 50–60; PULSE 64–96; RESP 14–20; TEMP 97.2–98.6; O2SAT 92–100
[2023-07-29] MEDS: SODIUM CHL 0.9% 1000 ML BAG XX ONE (07:00)
[2023-07-29] MEDS: ALBUMIN 25% 100 ML IV ONE ×2 (12:45→17:00)
[2023-07-29] MEDS: MIDODRINE HCL 10 MG TAB PO ONE (13:17)
[2023-07-29] MEDS ORDERED: EPOETIN ALFA-EPBX 10,000 UNIT/1ML VIAL SC ONE (21:00)
[2023-07-29] MEDS: VANCOMYCIN 1GM/200ML 200 ML IV ONE (21:05)
[2023-07-30] VITALS (11 sets, daily range): BP systolic 70–121; BP diastolic 36–95; PULSE 64–80; RESP 17–20; TEMP 97.7–98.4; O2SAT 95–100
[2023-07-31] VITALS (10 sets, daily range): BP systolic 78–116; BP diastolic 21–65; PULSE 62–75; RESP 15–22; TEMP 97.4–98.4; O2SAT 90–100
[2023-07-31] MEDS: ALBUMIN 25% 50 ML IV SCH (11:00)
[2023-07-31 11:52] LABS: Alanine Aminotransferase 12 U/L (7-40); Albumin 2.5 g/dL (3.2-4.8); Alkaline Phosphatase 107 U/L (46-116); Anion Gap 11 (5-15); Aspartate Aminotransferase 48 U/L (13-40); BUN/Creatinine Ratio 5.3 (10.0-20.0); Blood Urea Nitrogen 30 mg/dL (9-23); Calcium 7.6 mg/dL (8.5-10.1); Carbon Dioxide 22 mmol/L (20-30); Chloride 102 mmol/L (98-107); Glucose 122 mg/dL (74-106); Potassium 3.9 mmol/L (3.5-5.1); Sodium 135 mmol/L (136-145)
[2023-07-31 11:53] LABS: Basophils # (auto) 0 10 ^3/uL (0-0.2); Basophils % (auto) 0.9 % (0.0-2.0); Bilirubin, Total 0.4 mg/dL (0.2-1.0); Eosinophils # (auto) 0.1 10 ^3/uL (0-0.8); Hematocrit 36.9 % (41.0-53.0); Hemoglobin 12.1 g/dL (13.5-17.5); Lymphocytes # (auto) 0.6 10 ^3/uL (0.4-5.4); Lymphocytes % (auto) 14.7 % (10.0-50.0); Mean Corpuscular Hemoglobin 32.1 pg (28.0-32.0); Mean Corpuscular Hgb Conc. 32.7 g/dL (32.0-36.0); Monocytes # (auto) 0.3 10 ^3/uL (0-1.3); Monocytes % (auto) 7.8 % (0.0-12.0); Neutrophils # (auto) 3.1 10 ^3/uL (1.6-8.6); Neutrophils % (auto) 74.6 % (37.0-80.0); Nucleated Red Blood Cells % 0.1 %; Red Blood Cells 3.76 10^6/uL (4.5-5.90); Red Cell Distribution Width 19.3 % (11.8-14.3); Total Protein 5.6 g/dL (5.7-8.2); White Blood Cell 4.1 10^3/uL (4.4-10.8)
[2023-07-31] MEDS: MIDODRINE HCL 10 MG TAB PO SCH (12:26)
[2023-07-31] MEDS: HYDROcodone-ACET 5/325MG TAB PO PRN (18:05)
[2023-07-31] MEDS: MIDODRINE HCL 10 MG TAB PO ONE (22:32)
[2023-08-01] VITALS (9 sets, daily range): BP systolic 82–119; BP diastolic 43–58; PULSE 58–72; RESP 17–20; TEMP 97.3–98.8; O2SAT 91–100
[2023-08-01] MEDS: MIDODRINE HCL 10 MG TAB PO ONE (21:22)
[2023-08-02] VITALS (8 sets, daily range): BP systolic 79–93; BP diastolic 40–57; PULSE 62–101; RESP 16–20; TEMP 97.9–98.6; O2SAT 94–98
[2023-08-02] MEDS ORDERED: SODIUM CHL 0.9% 1000 ML BAG XX ONE (07:00)
[2023-08-02] MEDS ORDERED: ALBUMIN 25% 100 ML IV SCH (07:00)
[2023-08-03] VITALS (7 sets, daily range): BP systolic 83–94; BP diastolic 32–42; PULSE 60–68; RESP 16–19; TEMP 36.8; O2SAT 94–98
[2023-08-04] MEDS ORDERED: SODIUM CHL 0.9% 1000 ML BAG XX ONE (07:00)
== END 2023-08-03 19:40 | DRG 871 ==
LOC: ER 19:29 → TELE-CENTR 22:33 → TELE 22:33 → TELE-CENTR 07-26 23:35
PROVIDERS: ADMIT Internal Medicine; ATTEND Nurse Practitioner
PROC: 06HY33Z Insertion of Infusion Device into Lower Vein, Percutaneous Approach (ICD-10-PCS; principal; 2023-07-25)
PROC: 5A1D70Z Performance of Urinary Filtration, Intermittent, Less than 6 Hours Per Day (ICD-10-PCS; 2023-07-26)
PROC: 5A1D70Z Performance of Urinary Filtration, Intermittent, Less than 6 Hours Per Day (ICD-10-PCS; 2023-07-29)
PROC: 5A1D70Z Performance of Urinary Filtration, Intermittent, Less than 6 Hours Per Day (ICD-10-PCS; 2023-08-02)
DX: A41.9 Sepsis, unspecified organism (principal); J96.01 Acute respiratory failure with hypoxia; N18.6 End stage renal disease; R65.21 Severe sepsis with septic shock; I13.2 Hypertensive heart and chronic kidney disease with heart failure and with stage 5 chronic kidney disease, or end stage renal disease; R47.01 Aphasia; E46 Unspecified protein-calorie malnutrition; E87.3 Alkalosis; L03.116 Cellulitis of left lower limb; L03.115 Cellulitis of right lower limb; L02.611 Cutaneous abscess of right foot; M86.8X7 Other osteomyelitis, ankle and foot; E11.69 Type 2 diabetes mellitus with other specified complication; Z20.822 Contact with and (suspected) exposure to COVID-19; I50.9 Heart failure, unspecified; E11.22 Type 2 diabetes mellitus with diabetic chronic kidney disease; M60.9 Myositis, unspecified; E87.6 Hypokalemia; E78.5 Hyperlipidemia, unspecified; I25.10 Atherosclerotic heart disease of native coronary artery without angina pectoris; E11.51 Type 2 diabetes mellitus with diabetic peripheral angiopathy without gangrene; E88.09 Other disorders of plasma-protein metabolism, not elsewhere classified; Z99.2 Dependence on renal dialysis; Z86.73 Personal history of transient ischemic attack (TIA), and cerebral infarction without residual deficits; Z79.01 Long term (current) use of anticoagulants; Z79.84 Long term (current) use of oral hypoglycemic drugs; Z82.3 Family history of stroke; Z68.25 Body mass index [BMI] 25.0-25.9, adult
CPT/HCPCS: 36415; 36600; 71045; 73700; 80048; 80053; 80202; 82306; 82805; 82962; 83605; 83970; 84100; 85018; 85025; 86850; 86900; 86901; 87040; 87045; 87340; 87426; 87427; 87493; 87804; 90935; 93970; 97110; 97163; G0378; J1642; J2405; J3480; J3490; P9047